=== PATIENT | female | born 1950 | race Caucasian/White ===

== ENCOUNTER 2018-07-30 01:38 | Emergency (ER) | payer MEDICARE, OTHER ==
[2018-07-30] MEDS ORDERED: DUONEB 0.5-3 MG/3 ml Neb IH ONE ×3 (01:43→03:57)
[2018-07-30] MEDS ORDERED: ROCEPHIN 1 Gm-D5w 50 ml Bag** 1 G/50 ML IVPB IV STA (01:44)
[2018-07-30] MEDS ORDERED: solu-MEDROL 125 MG IV ONE (01:44)
--- NOTE | 2018-07-30 01:44 | ERPHSYRPT ---
- History of Present Illness Time Seen by Provider: 07/30/18 01:39 Source: patient Exam Limitations: no limitations Physician History: 67 y/o white female with h/o recurrent bronchitis this time of year, presents with coughing for 2 days. 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 pt has no cp, no h/o emphysema/copd. sx are not better. pt is not on oxygen at home Timing/Duration: day(s) (2 to 3 days), worse Severity of Dyspnea-Max: moderate Severity of Dyspnea-Current: moderate Possible Cause: occasional episodes Modifying Factors: Improves With: coughing Associated Symptoms: anxiety, cough, wheezing, No chest pain/discomfort, No dizziness Allergies/Adverse Reactions: Sulfa (Sulfonamide Antibiotics) [Sulfa(Sulfonamide Antibiotics)] Allergy ( Intermediate, Verified 09/12/15 09:29) Hives Home Medications: Albuterol/Ipratropium 3ml Neb* [DUONEB 0.5-3 MG/3 ml Neb] 3 ml IH UD 09/12/15 [History] Azithromycin 250 mg [Zithromax 250 MG TABLET] 250 mg PO ZPACK 07/30/18 [ History] Gabapentin 300 mg PO HS 07/30/18 [History] Ibuprofen 200 mg [Motrin 200 mg] 200 mg PO Q6H PRN PRN 07/30/18 [History] Levothyroxine Sodium 25 mcg PO DAILY 07/30/18 [History] Lovastatin 40 mg PO DAILY 07/30/18 [History] Metformin HCl Xr 500 mg [Glucophage XR 500 MG] 500 mg PO DAILY 07/30/18 [ History] Potassium Chloride [Klor-Con M20] 20 meq PO DAILY 07/30/18 [History] Hx Tetanus, Diphtheria Vaccination/Date Given: No Hx Influenza Vaccination/Date Given: Yes Hx Pneumococcal Vaccination/Date Given: No - Review of Systems Constitutional: No Symptoms Eyes: No Symptoms Ears, Nose, & Throat: No Symptoms Respiratory: Cough, Dyspnea (mild), Wheezing, No Stridor Cardiac: No Symptoms, No Chest Pain, No Palpitations, No Syncope Abdominal/Gastrointestinal: No Symptoms, No Abdominal Pain, No Nausea, No Vomiting, No Diarrhea Genitourinary Symptoms: No Symptoms Musculoskeletal: No Symptoms Skin: No Symptoms Neurological: No Symptoms Psychological: No Symptoms Endocrine: No Symptoms Hematologic/Lymphatic: No Symptoms Immunological/Allergic: No Symptoms All Other Systems: Reviewed and Negative - Past Medical History Pertinent Past Medical History: Yes Neurological History: No Pertinent History ENT History: No Pertinent History Cardiac History: High Cholesterol, Hypertension Respiratory History: Asthma, Bronchitis Endocrine Medical History: No Pertinent History Musculoskeletal History: No Pertinent History GI Medical History: No Pertinent History History: No Pertinent History Psycho-Social History: No Pertinent History Female Reproductive Disorders: No Pertinent History Other Medical History: mitral valve prolapse, "pre-diabetes" - Past Surgical History Past Surgical History: Yes Neuro Surgical History: No Pertinent History Cardiac: No Pertinent History Respiratory: No Pertinent History Gastrointestinal: No Pertinent History Genitourinary: No Pertinent History Musculoskeletal: Joint Replacement, Orthopedic Surgery Female Surgical History: Hysterectomy Other Surgical History: hysterctomy 1999, ankle sx with plate 2008, left knee replacement January 2015 - Social History Smoking Status: Never smoker Exposure to second hand smoke: No Drug Use: none Patient Lives Alone: No - Nursing Vital Signs Nursing Vital Signs: Initial Vital Signs Temperature 101.5 F 07/30/18 01:39 Pulse Rate 95 H 07/30/18 01:39 Respiratory Rate 24 07/30/18 01:39 Blood Pressure 197/92 07/30/18 01:39 O2 Sat by Pulse Oximetry 93 L 07/30/18 01:39 Pain Scale Pain Intensity 4 - Physical Exam General Appearance: mild distress, alert, anxiety Eye Exam: PERRL/EOMI, eyes nml inspection Ears, Nose, Throat Exam: hearing grossly normal Neck Exam: normal inspection, non-tender, supple, full range of motion Respiratory Exam: airway intact, rhonchi (mild right side), wheezing (r>l), No chest tenderness, No respiratory distress, No accessory muscle use, No stridor Cardiovascular/Chest Exam: normal heart sounds, regular rate/rhythm, normal peripheral pulses Abdominal/Gastrointestinal Exam: soft, normal bowel sounds, No tenderness, No guarding, No rebound Rectal Exam: not done Extremity Exam: non-tender, normal range of motion, normal inspection Neurologic Exam: alert, oriented x 3, cooperative, sack repairer II-XII nml as tested Skin Exam: normal color, warm, dry Lymphatic Exam: No adenopathy SpO2 Interpretation: borderline oxygenation Oxygen Delivery: Room Air - Course Nursing assessment & vital signs reviewed: Yes EKG Interpreted by Me: RATE (91), Sinus Rhythm, NORMAL AXIS, NORMAL INTERVALS, NORMAL QRS, Other (no acute ischemia; no change from ekg dated 09/12/15) Ordered Tests: Active Orders 24 hr Category Date Time Status Appliance Sales Associate STAT Care 07/30/18 01:45 Active EKG-ER Only STAT Care 07/30/18 01:44 Active IV Insertion STAT Care 07/30/18 01:44 Active Oxygen-ED Only NASAL CANNULA 2 lpm Care 07/30/18 01:44 Active Pulse Oximetry (ED) STAT Care 07/30/18 01:44 Active CHEST 1 VIEW (PORTABLE) Stat Exams 07/30/18 01:44 Taken BLOOD CULTURE Stat Lab 07/30/18 02:05 Received CBC W DIFF Stat Lab 07/30/18 01:55 Completed Lactic Acid Stat Lab 07/30/18 02:20 Completed NT PRO BNP Stat Lab 07/30/18 01:55 Completed TROPONIN Q3H Lab 07/30/18 01:55 Completed TROPONIN Q3H Lab 07/30/18 05:00 Ordered TROPONIN Q3H Lab 07/30/18 08:00 Ordered TROPONIN Q3H Lab 07/30/18 11:00 Ordered TROPONIN Q3H Lab 07/30/18 14:00 Ordered TROPONIN Q3H Lab 07/30/18 17:00 Ordered TROPONIN Q3H Lab 07/30/18 20:00 Ordered TROPONIN Q3H Lab 07/30/18 23:00 Ordered Peak Expiratory Flow Rate ONCE RT 07/30/18 01:40 Active Respiratory Nebulizer STAT RT 07/30/18 01:45 Active Respiratory Therapy Assessment DAILY RT 07/30/18 01:41 Active Medication Summary Discontinued Medications Generic Name Dose Route Start Last Admin Trade Name Freq PRN Reason Stop Dose Admin Hydrocodone Bitart/Acetaminophen 10 ml 07/30/18 01:46 07/30/18 02:23 Hydrocodone-Acetamin 2.5-108/5 Ml Solution PO 07/30/18 01:47 10 ml STAT STA Administration Albuterol/Ipratropium Confirm 07/30/18 01:43 Duoneb 0.5-3 Mg/3 Ml Neb Administered 07/30/18 01:44 Dose 3 ml IH .STK-MED ONE Albuterol/Ipratropium 3 ml 07/30/18 01:44 07/30/18 01:54 Duoneb 0.5-3 Mg/3 Ml Neb IH 07/30/18 01:45 3 ml STAT ONE Administration Ceftriaxone Sodium/Dextrose 1 g in 50 mls @ 100 mls/hr 07/30/18 01:44 02:55 Rocephin 1 Gm-D5w 50 Ml Bag IV 07/30/18 02:13 Infused STAT STA Infusion Ceftriaxone Sodium/Dextrose Confirm 07/30/18 02:16 Rocephin 1 Gm-D5w 50 Ml Bag Administered 07/30/18 02:17 Dose 1 g in 50 mls @ ud IV .STK-MED ONE Methylprednisolone Sodium Succinate 125 mg 07/30/18 01:44 07/30/18 02:27 Solu-Medrol 125 Mg IV 07/30/18 01:45 125 mg STAT ONE Administration Methylprednisolone Sodium Succinate Confirm 07/30/18 02:16 Solu-Medrol 125 Mg Administered 07/30/18 02:17 Dose 125 mg .ROUTE .STK-MED ONE Lab/Rad Data: Laboratory Result Diagrams 07/30/18 01:55 Laboratory Results 07/30/18 07/30/18 07/30/18 Range/Units 02:20 01:55 01:55 WBC (4.0-10.5) K/mm3 RBC (4.1-5.4) M/mm3 Hgb (12.0-16.0) gm/dl Hct (35-47) % MCV (78-100) fl MCH (26-32) pg MCHC (32-36) g/dl RDW (11.5-14.0) % Plt Count (150-450) K/mm3 MPV (6-9.5) fl Gran % (36.0-66.0) % Eos # (Auto) (0-0.5) Absolute Lymphs (auto) (1.0-4.6) Absolute Monos (auto) (0.0-1.3) Lymphocytes % (24.0-44.0) % Monocytes % (0.0-12.0) % Eosinophils % (0.00-5.0) % Basophils % (0.0-0.4) % Absolute Granulocytes (1.4-6.9) Basophils # (0-0.4) Lactic Acid 1.3 (0.4-2.0) Troponin I < 0.012 (0.000-0.034) ng/mL NT-Pro-B Natriuret Pep 93.1 (0-900) pg/mL 07/30/18 Range/Units 01:55 WBC 5.1 (4.0-10.5) K/mm3 RBC 4.01 L (4.1-5.4) M/mm3 Hgb 11.9 L (12.0-16.0) gm/dl Hct 37.1 (35-47) % MCV 92.5 (78-100) fl MCH 29.6 (26-32) pg MCHC 32.1 (32-36) g/dl RDW 14.5 H (11.5-14.0) % Plt Count 256 (150-450) K/mm3 MPV 9.2 (6-9.5) fl Gran % 71.5 H (36.0-66.0) % Eos # (Auto) 0.06 (0-0.5) Absolute Lymphs (auto) 0.90 L (1.0-4.6) Absolute Monos (auto) 0.45 (0.0-1.3) Lymphocytes % 17.8 L (24.0-44.0) % Monocytes % 8.9 (0.0-12.0) % Eosinophils % 1.2 (0.00-5.0) % Basophils % 0.6 (0.0-0.4) % Absolute Granulocytes 3.61 (1.4-6.9) Basophils # 0.03 (0-0.4) Lactic Acid (0.4-2.0) Troponin I (0.000-0.034) ng/mL NT-Pro-B Natriuret Pep (0-900) pg/mL - Progress Progress: improved, re-examined Air Movement: good Progress Note: 07/30/18 03:51 pt states she is feeling better. hr improved. rr improved at this time. lactic acid nl, wbc nl, will give another neb tx. Blood Culture(s) Obtained: Yes Antibiotics given: Yes Counseled pt/family regarding: lab results, diagnosis, need for follow-up, rad results - Departure Time of Disposition: 03:53 Departure Disposition: Home Clinical Impression: Bronchitis Condition: Stable Critical Care Time: No Referrals: JACQUELINE DIAZ MD [Primary Care Provider] - Additional Instructions: complete your z pack as prescribed. follow up with dr. diaz for further management. return to ED if symptoms worsen. Prescriptions: Hydrocodone Bit/Acetaminophen [Hydrocodone-Acetaminophen Soln] 10 ml PO Q6H # 120 ml Prednisone 10 mg [Deltasone 10 mg] 10 mg PO TID #12 tablet
[2018-07-30] MEDS ORDERED: HYDROCODONE-ACETAMIN 2.5-108/5 ML SOLUTION PO STA (01:46)
[2018-07-30] MEDS: DUONEB 0.5-3 MG/3 ml Neb IH ONE ×2 (01:54→03:58)
[2018-07-30 02:10] LABS: BASOPHIL % 0.6 % (0.0-0.4); Basophil (Absolute #) 0.03 (0-0.4); Eosinophil % 1.2 % (0.00-5.0); Eosinophil (Absolute #) 0.06 (0-0.5); Granulocytes % 71.5 % (36.0-66.0); Hematocrit 37.1 % (35-47); Hemoglobin 11.9 gm/dl (12.0-16.0); Lymphocytes % 17.8 % (24.0-44.0); Mean Cell Volume 92.5 fl (78-100); Mean Corpuscular Hgb Concent. 32.1 g/dl (32-36); Mean Platelet Volume 9.2 fl (6-9.5); Monocyte (Absolute #) 0.45 (0.0-1.3); Monocytes % 8.9 % (0.0-12.0); Platelet Count 256 K/mm3 (150-450); Red Blood Count 4.01 M/mm3 (4.1-5.4); Red Cell Distribution Width 14.5 % (11.5-14.0); White Blood Count 5.1 K/mm3 (4.0-10.5)
[2018-07-30] MEDS ORDERED: solu-MEDROL 125 MG ONE (02:16)
[2018-07-30] MEDS ORDERED: ROCEPHIN 1 Gm-D5w 50 ml Bag** 1 G/50 ML IVPB IV ONE (02:16)
[2018-07-30 02:17] LABS: Mean Corpuscular Hemoglobin 29.6 pg (26-32)
[2018-07-30 05:36] VITALS: O2SAT 95
[2018-07-30 05:37] VITALS: BP 141/85; PULSE 90
--- NOTE | 2018-07-30 08:51 | XRAY ---
Indication: Cough. Short of breath. Comparison: June 30, 2017. Portable apical lordotic chest now demonstrates borderline cardiomegaly with central vascular congestion possible mild/early cardiac decompensation. No focal infiltrate, consolidation, or large effusion. Bony thorax intact. Impression: Borderline cardiomegaly with central vascular congestion possible mild/early cardiac decompensation. Superimposed pneumonia not completely excluded. Comment: Preliminary interpretation was made by [facility]. No discrepancy.
== END 2018-07-30 06:26 | disposition home or self-care (01) ==
LOC: ED 01:38
DX: J40 Bronchitis, not specified as acute or chronic (principal); I10 Essential (primary) hypertension; Z79.899 Other long term (current) drug therapy
CPT/HCPCS: 36000; 36415; 71045; 83605; 83880; 84484; 85025; 87040; 93005; 93041; 94150; 94640; 96365; 96374; 99284; J0696; J2930; A9270-GY

== ENCOUNTER 2018-08-01 13:43 | Inpatient (IN) | payer MEDICARE, OTHER ==
--- NOTE | 2018-08-01 14:12 | ERPHSYRPT ---
- History of Present Illness Time Seen by Provider: 08/01/18 14:03 Source: patient Exam Limitations: no limitations Physician History: The patient is a 67-year-old female with a friend complaining of a cough since . She did receive an influenza vaccination this year. On Monday, she saw [facility] care and was given a steroid shot and a Z-Sarath. She came to this ER on 07/30/18 because she wasn't any better. She was given breathing treatments, IV antibiotics, and steroids. She still has not been any better. She called her doctor today who did not return her call immediately. As she was checking into the ER, she received a phone call from him stating that he had called in a prescription for an antibiotic and steroids. She thinks she needs to be admitted because she lives alone and always has to be admitted when this happens once a year. She denies nausea or vomiting. She is short of breath. Her past medical history significant for asthma, DM, and hypertension. Her surgical history is significant for ankle surgery, knee replacement, and hysterectomy. Timing/Duration: day(s) (5), gradual onset, worse Cough Quality/Degree: moderate, dry cough Possible Cause: frequent episodes Modifying Factors: Improves With: albuterol nebulizer, coughing Associated Symptoms: cough, shortness of breath, wheezing Allergies/Adverse Reactions: Sulfa (Sulfonamide Antibiotics) [Sulfa(Sulfonamide Antibiotics)] Allergy ( Intermediate, Verified 09/12/15 09:29) Hives Home Medications: Albuterol/Ipratropium 3ml Neb* [DUONEB 0.5-3 MG/3 ml Neb] 3 ml IH UD 09/12/15 [History] Azithromycin 250 mg [Zithromax 250 MG TABLET] 250 mg PO ZPACK 07/30/18 [ History] Gabapentin 300 mg PO HS 07/30/18 [History] Ibuprofen 200 mg [Motrin 200 mg] 200 mg PO Q6H PRN PRN 07/30/18 [History] Levothyroxine Sodium 25 mcg PO DAILY 07/30/18 [History] Lovastatin 40 mg PO DAILY 07/30/18 [History] Metformin HCl Xr 500 mg [Glucophage XR 500 MG] 500 mg PO DAILY 07/30/18 [ History] Potassium Chloride [Klor-Con M20] 20 meq PO DAILY 07/30/18 [History] Hx Tetanus, Diphtheria Vaccination/Date Given: No Hx Influenza Vaccination/Date Given: Yes Hx Pneumococcal Vaccination/Date Given: No - Review of Systems Constitutional: No Fever, No Chills Eyes: No Symptoms Ears, Nose, & Throat: No Symptoms Respiratory: Cough, Dyspnea, Wheezing Cardiac: No Chest Pain, No Edema, No Syncope Abdominal/Gastrointestinal: No Abdominal Pain, No Nausea, No Vomiting, No Diarrhea Genitourinary Symptoms: No Dysuria Musculoskeletal: No Back Pain, No Neck Pain Skin: No Rash Neurological: No Dizziness, No Focal Weakness, No Sensory Changes Psychological: No Symptoms Endocrine: No Symptoms Hematologic/Lymphatic: No Symptoms Immunological/Allergic: No Symptoms All Other Systems: Reviewed and Negative - Past Medical History Pertinent Past Medical History: Yes Neurological History: No Pertinent History ENT History: No Pertinent History Cardiac History: High Cholesterol, Hypertension Respiratory History: Asthma, Bronchitis Endocrine Medical History: No Pertinent History Musculoskeletal History: No Pertinent History GI Medical History: No Pertinent History History: No Pertinent History Psycho-Social History: No Pertinent History Female Reproductive Disorders: No Pertinent History Other Medical History: mitral valve prolapse, "pre-diabetes" - Past Surgical History Past Surgical History: Yes Neuro Surgical History: No Pertinent History Cardiac: No Pertinent History Respiratory: No Pertinent History Gastrointestinal: No Pertinent History Genitourinary: No Pertinent History Musculoskeletal: Joint Replacement, Orthopedic Surgery Female Surgical History: Hysterectomy Other Surgical History: hysterctomy 1999, ankle sx with plate 2008, left knee replacement January 2015 - Social History Smoking Status: Never smoker Exposure to second hand smoke: No Drug Use: none Patient Lives Alone: No - Nursing Vital Signs Nursing Vital Signs: Initial Vital Signs Temperature 98.8 F 08/01/18 14:00 Pulse Rate 96 H 08/01/18 14:00 Respiratory Rate 20 08/01/18 14:00 Blood Pressure 174/105 08/01/18 14:00 O2 Sat by Pulse Oximetry 95 08/01/18 14:00 Pain Scale Pain Intensity 2 - Physical Exam General Appearance: mild distress, obese Eye Exam: PERRL/EOMI, eyes nml inspection Ears, Nose, Throat Exam: dry mucous membranes Neck Exam: normal inspection, non-tender, supple, full range of motion Respiratory Exam: normal breath sounds, diminished breath sounds, rhonchi, wheezing, No respiratory distress Cardiovascular Exam: regular rate/rhythm, normal heart sounds Gastrointestinal/Abdomen Exam: soft, No tenderness Pelvic Exam: not done Rectal Exam: not done Back Exam: normal inspection, No CVA tenderness, No vertebral tenderness Extremity Exam: normal inspection, normal range of motion Neurologic Exam: alert, oriented x 3, cooperative, normal mood/affect, sensation nml, No motor deficits Skin Exam: normal color, warm, dry, No rash Lymphatic Exam: No adenopathy SpO2 Interpretation: normal - Radiology Exams Chest X-ray Interpretation: Reviewed by me, Teleradiologist Report (per Dr Lawrence), Infiltrates (RLL infiltrate) Ordered Tests: Active Orders 24 hr Category Date Time Status IV Insertion STAT Care 08/01/18 14:19 Active Oxygen-ED Only NASAL CANNULA 2 lpm Care 08/01/18 14:19 Active CHEST 2 VIEWS (PA AND LAT) Stat Exams 08/01/18 14:20 Completed BLOOD CULTURE Stat Lab 08/01/18 14:40 Received CBC W DIFF Stat Lab 08/01/18 15:00 Completed CMP Stat Lab 08/01/18 15:00 Completed Lactic Acid Stat Lab 08/01/18 14:52 Results Manual Differential NC Stat Lab 08/01/18 15:00 Completed NT PRO BNP Stat Lab 08/01/18 15:00 Completed TROPONIN Q3H Lab 08/01/18 15:00 Completed TROPONIN Q3H Lab 08/01/18 17:30 Ordered TROPONIN Q3H Lab 08/01/18 20:30 Ordered TROPONIN Q3H Lab 08/01/18 23:30 Ordered TROPONIN Q3H Lab 08/02/18 02:30 Ordered Peak Expiratory Flow Rate ONCE RT 08/01/18 14:47 Active Respiratory Nebulizer STAT RT 08/01/18 14:21 Completed Respiratory Therapy Assessment DAILY RT 08/01/18 14:44 Active Medication Summary Discontinued Medications Generic Name Dose Route Start Last Admin Trade Name Freq PRN Reason Stop Dose Admin Albuterol/Ipratropium 3 ml 08/01/18 14:19 08/01/18 14:40 Duoneb 0.5-3 Mg/3 Ml Neb IH 08/01/18 14:20 3 ml STAT ONE Administration Albuterol/Ipratropium Confirm 08/01/18 14:36 Duoneb 0.5-3 Mg/3 Ml Neb Administered 08/01/18 14:37 Dose 3 ml IH .STK-MED ONE Sodium Chloride 1,000 mls @ 999 mls/hr 08/01/18 14:19 08/01/18 14:53 Sodium Chloride 0.9% 1000 Ml IV 08/01/18 15:19 999 mls/hr .Q1H1M STA Administration Sodium Chloride Confirm 08/01/18 14:46 Sodium Chloride 0.9% 1000 Ml Administered 08/01/18 14:47 Dose 1,000 mls @ ud .ROUTE .STK-MED ONE Methylprednisolone Sodium Succinate 125 mg 08/01/18 14:19 08/01/18 14:53 Solu-Medrol 125 Mg IV 08/01/18 14:20 125 mg STAT ONE Administration Methylprednisolone Sodium Succinate Confirm 08/01/18 14:45 Solu-Medrol 125 Mg Administered 08/01/18 14:46 Dose 125 mg .ROUTE .STK-MED ONE Lab/Rad Data: Laboratory Result Diagrams 08/01/18 15:00 08/01/18 15:00 Laboratory Results 08/01/18 08/01/18 08/01/18 Range/Units 15:00 15:00 15:00 WBC (4.0-10.5) K/mm3 RBC (4.1-5.4) M/mm3 Hgb (12.0-16.0) gm/dl Hct (35-47) % MCV (78-100) fl MCH (26-32) pg MCHC (32-36) g/dl RDW (11.5-14.0) % Plt Count (150-450) K/mm3 MPV (6-9.5) fl Segmented Neutrophils (36.0-66.0) % Band Neutrophils (0.0-2.0) % Lymphocytes (Manual) (24-44) % Monocytes (Manual) (0.0-12.0) % Eosinophils (Manual) (0.00-3.0) % Atypical Lymphocytes % Platelet Estimate (NORMAL) RBC Morphology Anisocytosis Sodium 140 (137-145) mmol/L Potassium 4.0 (3.5-5.1) mmol/L Chloride 103 (98-107) mmol/L Carbon Dioxide 29 (22-30) mmol/L Anion Gap 11.1 (5-15) MEQ/L BUN 15 (7-17) mg/dL Creatinine 0.48 L (0.52-1.04) mg/dL Estimated GFR > 60.0 ML/MIN Glucose 138 H (74-106) mg/dL Lactic Acid (0.4-2.0) Calcium 9.5 (8.4-10.2) mg/dL Total Bilirubin 0.40 (0.2-1.3) mg/dL AST 31 (14-36) U/L ALT 23 (0-35) U/L Alkaline Phosphatase 65 (38-126) U/L Troponin I < 0.012 (0.000-0.034) ng/mL NT-Pro-B Natriuret Pep 107 (0-900) pg/mL Serum Total Protein 7.6 (6.3-8.2) g/dL Albumin 4.3 (3.5-5.0) g/dL Influenza Type A Ag NEGATIVE (NEGATIVE) Influenza Type B Ag NEGATIVE (NEGATIVE) RSV (PCR) NEGATIVE (Negative) 08/01/18 08/01/18 Range/Units 15:00 14:52 WBC 5.5 (4.0-10.5) K/mm3 RBC 4.02 L (4.1-5.4) M/mm3 Hgb 11.8 L (12.0-16.0) gm/dl Hct 37.5 (35-47) % MCV 93.3 (78-100) fl MCH 29.3 (26-32) pg MCHC 31.5 L (32-36) g/dl RDW 14.4 H (11.5-14.0) % Plt Count 279 (150-450) K/mm3 MPV 9.1 (6-9.5) fl Segmented Neutrophils 63 (36.0-66.0) % Band Neutrophils 1 (0.0-2.0) % Lymphocytes (Manual) 25 (24-44) % Monocytes (Manual) 8 (0.0-12.0) % Eosinophils (Manual) 1 (0.00-3.0) % Atypical Lymphocytes 2 % Platelet Estimate NORMAL (NORMAL) RBC Morphology ABNORMAL Anisocytosis 1+ Sodium (137-145) mmol/L Potassium (3.5-5.1) mmol/L Chloride (98-107) mmol/L Carbon Dioxide (22-30) mmol/L Anion Gap (5-15) MEQ/L BUN (7-17) mg/dL Creatinine (0.52-1.04) mg/dL Estimated GFR ML/MIN Glucose (74-106) mg/dL Lactic Acid 2.1 H (0.4-2.0) Calcium (8.4-10.2) mg/dL Total Bilirubin (0.2-1.3) mg/dL AST (14-36) U/L ALT (0-35) U/L Alkaline Phosphatase (38-126) U/L Troponin I (0.000-0.034) ng/mL NT-Pro-B Natriuret Pep (0-900) pg/mL Serum Total Protein (6.3-8.2) g/dL Albumin (3.5-5.0) g/dL Influenza Type A Ag (NEGATIVE) Influenza Type B Ag (NEGATIVE) RSV (PCR) (Negative) - Progress Progress: improved Air Movement: fair Blood Culture(s) Obtained: Yes Antibiotics given: Yes Discussed with : Donavan Will see patient in: hospital (full admit) Counseled pt/family regarding: lab results, diagnosis, rad results - Departure Time of Disposition: 16:45 Departure Disposition: In-patient Admission (per Dr Diaz) Clinical Impression: Pneumonia Condition: Stable Critical Care Time: No Referrals: JACQUELINE DIAZ MD [Primary Care Provider] -
[2018-08-01] MEDS ORDERED: DUONEB 0.5-3 MG/3 ml Neb IH ONE ×2 (14:19→14:36)
[2018-08-01] MEDS ORDERED: Sodium Chloride 0.9% 1000 ML 1,000 ML IV STA (14:19)
[2018-08-01] MEDS ORDERED: solu-MEDROL 125 MG IV ONE (14:19)
--- NOTE | 2018-08-01 14:36 | XRAY ---
Indication: Cough and short of breath. Comparison: July 30, 2018. PA/lateral chest now demonstrates right lower lobe infiltrate without consolidation or large effusion. Remaining heart and lungs unremarkable.
[2018-08-01] MEDS ORDERED: solu-MEDROL 125 MG ONE (14:45)
[2018-08-01] MEDS ORDERED: Sodium Chloride 0.9% 1000 ML 1,000 ML ONE (14:46)
[2018-08-01 14:56] LABS: Lactic Acid 2.1 (0.4-2.0)
[2018-08-01 15:19] LABS: Hematocrit 37.5 % (35-47); Hemoglobin 11.8 gm/dl (12.0-16.0); Mean Cell Volume 93.3 fl (78-100); Mean Corpuscular Hgb Concent. 31.5 g/dl (32-36); Mean Platelet Volume 9.1 fl (6-9.5); Platelet Count 279 K/mm3 (150-450); Red Blood Count 4.02 M/mm3 (4.1-5.4); Red Cell Distribution Width 14.4 % (11.5-14.0); White Blood Count 5.5 K/mm3 (4.0-10.5)
[2018-08-01 15:40] LABS: Mean Corpuscular Hemoglobin 29.3 pg (26-32)
[2018-08-01 15:46] LABS: ALBUMIN 4.3 g/dL (3.5-5.0); ALKALINE PHOSPHATASE 65 U/L (38-126); ANION GAP 11.1 MEQ/L (5-15); BLOOD UREA NITROGEN 15 mg/dL (7-17); CHLORIDE 103 mmol/L (98-107); Calcium 9.5 mg/dL (8.4-10.2); Carbon Dioxide 29 mmol/L (22-30); Creatinine 1 0.48 mg/dL (0.52-1.04); Glucose 138 mg/dL (74-106); NT PRO BNP 107 pg/mL (0-900); SGOT/AST 31 U/L (14-36); SGPT/ALT 23 U/L (0-35); SODIUM 140 mmol/L (137-145); Total Protein 7.6 g/dL (6.3-8.2)
[2018-08-01 15:55] LABS: INFLUENZA A NEGATIVE (NEGATIVE); INFLUENZA B NEGATIVE (NEGATIVE); RESPIRATORY SYNCTIAL VIRUS NEGATIVE (Negative)
[2018-08-01 16:09] LABS: ANISOCYTOSIS 1+; ATYPICAL LYMPHS 2 %; BAND 1 % (0.0-2.0); Eosinophil 1 % (0.00-3.0); Lymphocytes 25 % (24-44); Monocyte 8 % (0.0-12.0); Neutrophils 63 % (36.0-66.0); Platelet Estimate NORMAL (NORMAL); Total Cells Counted 100
[2018-08-01] MEDS ORDERED: ROCEPHIN 1 Gm-D5w 50 ml Bag** 1 G/50 ML IVPB IV STA (16:44)
[2018-08-01] MEDS ORDERED: ROCEPHIN 1 Gm-D5w 50 ml Bag** 1 G/50 ML IVPB IV ONE (16:55)
[2018-08-01] MEDS ORDERED: PROVENTIL 2.5 MG/3 ML NEB IH ONE (17:24)
[2018-08-01] MEDS ORDERED: TYLENOL 325 MG PO PRN (17:33)
[2018-08-01] MEDS ORDERED: MORPHINE SULFATE 2 MG INJ IV PRN (17:33)
[2018-08-01] MEDS ORDERED: Zofran 4 MG/2 ML VIAL IV PRN (17:33)
[2018-08-01] MEDS ORDERED: PROVENTIL 2.5 MG/3 ML NEB IH PRN (17:37)
[2018-08-01] MEDS: Sodium Chloride 0.9% 1000 ML 1,000 ML IV SCH (18:20)
[2018-08-01] MEDS ORDERED: PROVENTIL 2.5 MG/3 ML NEB IH SCH (19:00)
[2018-08-01] MEDS ORDERED: DUONEB 0.5-3 MG/3 ml Neb IH SCH (19:00)
[2018-08-01] MEDS: DUONEB 0.5-3 MG/3 ml Neb IH SCH ×2 (19:31→23:03)
[2018-08-01] MEDS ORDERED: HYDROCODONE-ACETAMIN 2.5-108/5 ML SOLUTION PO PRN (19:42)
[2018-08-01] MEDS ORDERED: MOTRIN 200 MG PO PRN (19:50)
[2018-08-01] MEDS ORDERED: Zithromax 500 MG/ 250 ML NaCl Premix 500 MG/250 ML IVPB IV ONE (20:20)
[2018-08-01] MEDS: solu-MEDROL 125 MG IV SCH (20:42)
[2018-08-01 20:45] LABS: Lactic Acid 2.2 (0.4-2.0)
[2018-08-01] MEDS: NovoLOG Insulin SQ PRN (22:22)
[2018-08-01] MEDS: NEURONTIN 300 MG PO SCH (22:22)
[2018-08-01 23:55] LABS: Lactic Acid 2.7 (0.4-2.0)
[2018-08-02] MEDS: solu-MEDROL 125 MG IV SCH ×2 (03:04→22:21)
[2018-08-02] MEDS: DUONEB 0.5-3 MG/3 ml Neb IH SCH ×6 (03:14→23:30)
[2018-08-02] MEDS ORDERED: TYLENOL 325 MG ONE (05:38)
[2018-08-02] MEDS ORDERED: Sodium Chloride 0.9% 1000 ML 1,000 ML ONE (05:38)
[2018-08-02] MEDS: Sodium Chloride 0.9% 1000 ML 1,000 ML IV SCH (05:43)
[2018-08-02 06:00] LABS: Hematocrit 33.7 % (35-47); Hemoglobin 10.7 gm/dl (12.0-16.0); Mean Cell Volume 93.6 fl (78-100); Mean Corpuscular Hemoglobin 29.7 pg (26-32); Mean Corpuscular Hgb Concent. 31.8 g/dl (32-36); Mean Platelet Volume 8.9 fl (6-9.5); Platelet Count 256 K/mm3 (150-450); Red Cell Distribution Width 14.4 % (11.5-14.0); White Blood Count 4.7 K/mm3 (4.0-10.5)
[2018-08-02 06:15] LABS: ANION GAP 13.1 MEQ/L (5-15); BLOOD UREA NITROGEN 10 mg/dL (7-17); CHLORIDE 105 mmol/L (98-107); Calcium 8.6 mg/dL (8.4-10.2); Carbon Dioxide 26 mmol/L (22-30); Creatinine 1 0.41 mg/dL (0.52-1.04); Glucose 208 mg/dL (74-106); Potassium 3.6 mmol/L (3.5-5.1); SODIUM 140 mmol/L (137-145)
[2018-08-02] MEDS ORDERED: NORCO 5/325 MG PO PRN (06:46)
[2018-08-02 07:25] LABS: ANISOCYTOSIS 1+; ATYPICAL LYMPHS 1 %; BAND 1 % (0.0-2.0); Lymphocytes 11 % (24-44); Monocyte 4 % (0.0-12.0); Neutrophils 83 % (36.0-66.0); Platelet Estimate NORMAL (NORMAL); Total Cells Counted 100; Toxic Granulation 1+
[2018-08-02] MEDS: NovoLOG Insulin SQ PRN ×3 (07:37→22:21)
[2018-08-02] MEDS: Glucophage XR 500 MG PO SCH (09:08)
[2018-08-02] MEDS: ZOCOR 20MG PO SCH (09:08)
[2018-08-02] MEDS: Klor Con 10 MEQ PO SCH (09:09)
[2018-08-02] MEDS ORDERED: Tussionex Pennkinetic Susp PO PRN (09:19)
[2018-08-02] MEDS ORDERED: NON-FORMULARY ITEM (Potassium Chloride [Klor-Con M20] 20 MEQ) PO SCH (10:00)
[2018-08-02] MEDS ORDERED: Zithromax 500 MG/ 250 ML NaCl Premix 500 MG/250 ML IVPB IV SCH ×2 (10:00→22:00)
[2018-08-02] MEDS: ROCEPHIN 1 Gm-D5w 50 ml Bag** 1 G/50 ML IVPB IV SCH (10:00)
[2018-08-02] MEDS ORDERED: solu-MEDROL 125 MG IV SCH (12:00)
[2018-08-02] MEDS: Sodium Chloride 0.9% 10 ML FLUSH Syringe IV SCH ×2 (22:18→22:20)
[2018-08-02] MEDS: NEURONTIN 300 MG PO SCH (22:20)
[2018-08-03] MEDS: DUONEB 0.5-3 MG/3 ml Neb IH SCH ×3 (03:53→10:27)
[2018-08-03] MEDS: Sodium Chloride 0.9% 10 ML FLUSH Syringe IV SCH (06:47)
[2018-08-03] MEDS: ROCEPHIN 1 Gm-D5w 50 ml Bag** 1 G/50 ML IVPB IV SCH (09:15)
[2018-08-03] MEDS: Klor Con 10 MEQ PO SCH (09:16)
[2018-08-03] MEDS: Glucophage XR 500 MG PO SCH (09:16)
[2018-08-03] MEDS: ZOCOR 20MG PO SCH (09:16)
[2018-08-03] MEDS: solu-MEDROL 125 MG IV SCH (09:16)
[2018-08-03] MEDS: NovoLOG Insulin SQ PRN (09:17)
[2018-08-03 09:37] LABS: Hematocrit 35.2 % (35-47); Mean Cell Volume 94.1 fl (78-100); Mean Corpuscular Hemoglobin 29.4 pg (26-32); Mean Corpuscular Hgb Concent. 31.3 g/dl (32-36); Mean Platelet Volume 8.8 fl (6-9.5); Platelet Count 276 K/mm3 (150-450); Red Blood Count 3.74 M/mm3 (4.1-5.4); Red Cell Distribution Width 14.7 % (11.5-14.0); White Blood Count 9.9 K/mm3 (4.0-10.5)
[2018-08-03 13:06] VITALS: BP 170/84; PULSE 80; O2SAT 95
--- NOTE | 2018-08-03 13:12 | PCM.SSS ---
History of Present Illness - Chief Complaint Chief Complaint: shortness of breath for 3-4 days History of Present Illness: is a 67 year old female came to [facility] with c/o shortness of breath, cough , fever for 3-4 days - Review of Systems Constitutional: No Fever, No Chills Eyes: No Symptoms Ears, Nose, & Throat: No Symptoms Respiratory: Cough, Short Of Breath, Wheezing Cardiac: No Chest Pain, No Edema, No Syncope Abdominal/Gastrointestinal: No Abdominal Pain, No Nausea, No Vomiting, No Diarrhea Genitourinary Symptoms: No Dysuria Musculoskeletal: No Back Pain, No Neck Pain Skin: No Rash Neurological: No Dizziness, No Focal Weakness, No Sensory Changes Psychological: No Symptoms Endocrine: No Symptoms Hematologic/Lymphatic: No Symptoms Immunological/Allergic: No Symptoms Medications & Allergies Home Medications: Home Medication List Albuterol/Ipratropium 3ml Neb* [DUONEB 0.5-3 MG/3 ml Neb] 3 ml IH UD 09/12/15 [History Confirmed 08/01/18] Gabapentin 300 mg PO HS 07/30/18 [History Confirmed 08/01/18] Hydrocodone Bit/Acetaminophen [Hydrocodone-Acetaminophen Soln] 10 ml PO Q6H # 120 ml 07/30/18 [Rx Confirmed 08/01/18] Ibuprofen 200 mg [Motrin 200 mg] 200 mg PO Q6H PRN PRN 07/30/18 [History Confirmed 08/01/18] Lovastatin 40 mg PO DAILY 07/30/18 [History Confirmed 08/01/18] Metformin HCl Xr 500 mg [Glucophage XR 500 MG] 500 mg PO DAILY 07/30/18 [ History Confirmed 08/01/18] Potassium Chloride [Klor-Con M20] 20 meq PO DAILY 07/30/18 [History Confirmed ] Allergies/Adverse Reactions: Allergies Allergy/AdvReac Type Severity Reaction Status Date / Time Sulfa (Sulfonamide Allergy Intermediate Hives Verified 09/12/15 09:29 Antibiotics) [Sulfa(Sulfonamide Antibiotics)] - Past Medical History Past Medical History: Yes Neurological History: No Pertinent History ENT History: Cataracts Cardiac History: High Cholesterol, Hypertension Respiratory History: Asthma, Bronchitis Endocrine Medical History: Diabetes Type II Musculoskelatal History: No Pertinent History GI Medical History: No Pertinent History History: No Pertinent History Pyscho-Social History: No Pertinent History Reproductive Disorders: No Pertinent History Comment: mitral valve prolapse - Female History Are you now?: No - Past Surgical History Past Surgical History: Yes (Knee replacement) Neuro Surgical History: No Pertinent History Cardiac History: No Pertinent History Respiratory Surgery: No Pertinent History GI Surgical History: No Pertinent History Genitourinary Surgical Hx: No Pertinent History Musculskeletal Surgical Hx: No Pertinent History Female Surgical History: No Pertinent History Other Surgical History: hysterctomy 1999, ankle sx with plate 2008, left knee replacement January 2015 - Social History Smoking Status: Never smoker Exposure to second hand smoke: No Alcohol: None Drug Use: none - Physical Exam Vital Signs: Vital Signs - 24 hr Temp Pulse Resp BP Pulse Ox 08/03/18 12:00 98 F 80 23 170/84 95 08/03/18 10:34 84 18 93 L 08/03/18 08:00 98.1 F 89 18 142/79 100 08/03/18 06:42 89 16 98 08/03/18 04:26 98.0 F 84 20 152/86 99 08/03/18 03:55 68 20 96 08/02/18 23:58 97.7 F 77 20 140/80 97 08/02/18 23:32 76 20 97 08/02/18 19:36 97.6 F 87 20 137/69 98 08/02/18 19:32 86 20 94 L 08/02/18 16:00 20 08/02/18 15:52 97.8 F 94 H 20 118/61 97 08/02/18 14:53 88 18 95 Oxygen-Last 24 hours O2 Percentage 2 Liters = 28% O2 Percentage 2 Liters = 28% O2 Percentage 2 Liters = 28% O2 Percentage 4 Liters = 36% General Appearance: no apparent distress, alert Neurologic Exam: alert, oriented x 3, cooperative, normal mood/affect, nml cerebellar function, nml station & gait, sensation nml, No motor deficits Eye Exam: PERRL/EOMI, eyes nml inspection Ears, Nose, Throat Exam: normal ENT inspection, TMs normal, pharynx normal, moist mucous membranes Neck Exam: normal inspection, non-tender, supple, full range of motion Respiratory Exam: normal breath sounds, lungs clear, No respiratory distress Cardiovascular Exam: regular rate/rhythm, normal heart sounds, normal peripheral pulses Gastrointestinal/Abdomen Exam: soft, normal bowel sounds, No tenderness, No mass Back Exam: normal inspection, normal range of motion, No CVA tenderness, No vertebral tenderness Extremity Exam: normal inspection, normal range of motion, pelvis stable Skin Exam: normal color, warm, dry, No rash Lymphatic Exam: No adenopathy Results - Labs Lab/Micro Results: Accuchecks Date 08/03/18 Date 08/03/18 Date 08/02/18 Time 11:30 Time 07:30 Time 16:30 Accucheck Value: 190 Accucheck Value: 183 Accucheck Value: 219 Accucheck Value: 174 Lab Results-Last 24 Hours 08/02/18 08/03/18 Range/Units Unknown 09:30 WBC 9.9 (4.0-10.5) K/mm3 RBC 3.74 L (4.1-5.4) M/mm3 Hgb 11.0 L (12.0-16.0) gm/dl Hct 35.2 (35-47) % MCV 94.1 (78-100) fl MCH 29.4 (26-32) pg MCHC 31.3 L (32-36) g/dl RDW 14.7 H (11.5-14.0) % Plt Count 276 (150-450) K/mm3 MPV 8.8 (6-9.5) fl Hemoglobin A1c 6.27 H (4.5-6.0) % Microbiology 08/01/18 15:00 Blood Culture - Preliminary Blood NO GROWTH TO DATE 08/01/18 14:40 Blood Culture - Preliminary Blood NO GROWTH TO DATE Accuchecks Date 08/03/18 Date 08/03/18 Date 08/02/18 Time 11:30 Time 07:30 Time 16:30 Accucheck Value: 190 Accucheck Value: 183 Accucheck Value: 219 Accucheck Value: 174 - Radiology Impressions Radiology Exams & Impressions: Radiology Procedures Category Date Time Status CHEST 2 VIEWS (PA AND LAT) Stat Exams 08/01/18 14:20 Completed Assessment/Plan (1) Pneumonia Current Visit: Yes Status: Acute Code(s): J18.9 - PNEUMONIA, UNSPECIFIED ORGANISM (2) Bronchitis Current Visit: No Status: Acute Code(s): J40 - BRONCHITIS, NOT SPECIFIED ACUTE OR CHRONIC Hospital Summary - Hospital Course Hospital Course: Last Vital Signs Temp 98 F 08/03/18 12:00 Pulse 80 08/03/18 12:00 Resp 23 08/03/18 12:00 BP 170/84 08/03/18 12:00 Pulse Ox 95 08/03/18 12:00 Allergies Sulfa (Sulfonamide Antibiotics) [Sulfa(Sulfonamide Antibiotics)] Allergy ( Intermediate, Verified 09/12/15 09:29) Hives Active Medications Acetaminophen (Tylenol 325 Mg) 650 mg PO Q4H PRN PRN PRN Reason: PAIN AND/OR FEVER Stop: 08/31/18 17:32 Last Admin: 08/02/18 20:14 Dose: 650 mg Hydrocodone Bitart/Acetaminophen ([place] 5/325 Mg) 1 tab PO Q6H PRN PRN PRN Reason: pain Stop: 08/07/18 06:45 Albuterol Sulfate (Proventil 2.5 Mg/3 Ml Neb) 2.5 mg IH Q4H PRN PRN PRN Reason: SHORTNESS OF BREATH/WHEEZING Stop: 08/31/18 17:36 Last Admin: 08/01/18 17:20 Dose: 2.5 mg Albuterol/Ipratropium (Duoneb 0.5-3 Mg/3 Ml Neb) 3 ml IH Q4HRT DIANA Stop: 08/31/18 18:59 Last Admin: 08/03/18 10:27 Dose: 3 ml Chlorphenir/Hydrocodone Polistirex (Tussionex Pennkinetic Susp) 5 ml PO Q12H PRN PRN PRN Reason: COUGH Stop: 08/07/18 09:18 Last Admin: 08/02/18 10:00 Dose: 5 ml Gabapentin (Neurontin 300 Mg) 300 mg PO HS DIANA Stop: 08/31/18 21:59 Last Admin: 08/02/18 22:20 Dose: 300 mg Ceftriaxone Sodium/Dextrose (Rocephin 1 Gm-D5w 50 Ml Bag) 1 g in 50 mls @ 100 mls/hr IV Q24H10 DIANA Stop: 09/01/18 09:59 Last Admin: 08/03/18 09:15 Dose: 100 mls/hr Azithromycin (Zithromax 500 Mg/ 250 Ml Nacl Premix) 500 mg in 250 mls @ 250 mls /hr IV Q24H22 [facility] Stop: 09/01/18 21:59 Last Admin: 08/02/18 22:21 Dose: 250 mls/hr Ibuprofen (Motrin 200 Mg) 200 mg PO Q6HPRN PRN PRN Reason: PAIN Stop: 08/31/18 19:49 Last Admin: 08/02/18 05:43 Dose: 200 mg Insulin Aspart (Novolog Insulin) 0 unit SQ UD PRN PRN Reason: HYPERGLYCEMIA Stop: 08/31/18 22:15 Last Admin: 08/03/18 09:17 Dose: 3 unit Metformin HCl (Glucophage Xr 500 Mg) 500 mg PO DAILY [facility] Stop: 09/01/18 09:59 Last Admin: 08/03/18 09:16 Dose: 500 mg Methylprednisolone Sodium Succinate (Solu-Medrol 125 Mg) 80 mg IV Q12HT [facility] Stop: 09/01/18 21:59 Last Admin: 08/03/18 09:16 Dose: 80 mg Morphine Sulfate (Morphine Sulfate 2 Mg Inj) 2 mg IV Q4H PRN PRN PRN Reason: PAIN Stop: 08/06/18 17:32 Ondansetron HCl (Zofran 4 Mg/2 Ml Vial) 4 mg IV Q6H PRN PRN PRN Reason: NAUSEA/VOMITING Stop: 08/31/18 17:32 Potassium Chloride (Klor Con 10 Meq) 20 meq PO DAILY [facility] Stop: 09/01/18 09:59 Last Admin: 08/03/18 09:16 Dose: 20 meq Simvastatin (Zocor 20mg) 40 mg PO DAILY [facility] Stop: 09/01/18 09:59 Last Admin: 08/03/18 09:16 Dose: 40 mg Sodium Chloride (Sodium Chloride 0.9% 10 Ml Flush Syringe) 10 ml IV Q8HT [facility] Stop: 09/01/18 13:59 Last Admin: 08/03/18 06:47 Dose: 10 ml Intake & Output 08/03/18 08/04/18 11:59 11:59 Intake Total 3089 Output Total 3250 Balance -161 Weight 104.3 kg Orders 08/02/18 14:00 NaCl 0.9% 10 ML FLUSH [Sodium Chloride 0.9% 10 ML FLUSH Syringe] 10 ml IV Q8HT 08/02/18 22:00 Methylprednis Sod Succ 125 mg* [solu-MEDROL 125 MG] 80 mg IV Q12HT Lab Tests 08/02/18 08/03/18 Unknown 09:30 WBC 9.9 RBC 3.74 L Hgb 11.0 L Hct 35.2 MCV 94.1 MCH 29.4 MCHC 31.3 L RDW 14.7 H Plt Count 276 MPV 8.8 Hemoglobin A1c 6.27 H Microbiology 08/01/18 15:00 Blood Blood Culture - Preliminary NO GROWTH TO DATE 08/01/18 14:40 Blood Blood Culture - Preliminary NO GROWTH TO DATE - Vitals & Intake/Output Vital Signs: Vital Signs Temperature 98 F 08/03/18 12:00 Pulse Rate 80 08/03/18 12:00 Respiratory Rate 23 08/03/18 12:00 Blood Pressure 170/84 08/03/18 12:00 O2 Sat by Pulse Oximetry 95 08/03/18 12:00 Oxygen-Last Documented O2 Percentage 2 Liters = 28% Intake & Output: Intake & Output 08/01/18 08/02/18 08/03/18 08/04/18 11:59 11:59 11:59 11:59 Intake Total 4292 3089 Output Total 2250 3250 Balance 2042 -161 Weight 104.3 kg 104.3 kg - Lab Result Diagrams: 08/03/18 09:30 08/02/18 05:28 Lab Results-Last 24 Hrs: Accuchecks Date 08/03/18 Date 08/03/18 Date 08/02/18 Time 11:30 Time 07:30 Time 16:30 Accucheck Value: 190 Accucheck Value: 183 Accucheck Value: 219 Accucheck Value: 174 Lab Results-Last 24 Hours 08/02/18 08/03/18 Range/Units Unknown 09:30 WBC 9.9 (4.0-10.5) K/mm3 RBC 3.74 L (4.1-5.4) M/mm3 Hgb 11.0 L (12.0-16.0) gm/dl Hct 35.2 (35-47) % MCV 94.1 (78-100) fl MCH 29.4 (26-32) pg MCHC 31.3 L (32-36) g/dl RDW 14.7 H (11.5-14.0) % Plt Count 276 (150-450) K/mm3 MPV 8.8 (6-9.5) fl Hemoglobin A1c 6.27 H (4.5-6.0) % Micro Results-Entire Visit: Microbiology 08/01/18 15:00 Blood Culture - Preliminary Blood NO GROWTH TO DATE 08/01/18 14:40 Blood Culture - Preliminary Blood NO GROWTH TO DATE Accuchecks Date 08/03/18 Date 08/03/18 Date 08/02/18 Time 11:30 Time 07:30 Time 16:30 Accucheck Value: 190 Accucheck Value: 183 Accucheck Value: 219 Accucheck Value: 174 - Radiology Exams Ordered Rad Exams-Entire Visit: Radiology Procedures Category Date Time Status CHEST 2 VIEWS (PA AND LAT) Stat Exams 08/01/18 14:20 Completed - Procedures and Test Procedures and Tests throughout Hospitalization: Therapy Orders & Screens 08/01/18 14:21 Respiratory Nebulizer STAT Comment: Diagnosis: Shortness of Breath 08/01/18 14:44 Respiratory Therapy Assessment DAILY Comment: Diagnosis: Shortness of Breath 08/01/18 14:47 Peak Expiratory Flow Rate DAILY Comment: Reason For Exam: Diagnosis: Shortness of Breath 08/01/18 17:33 Oxygen NASAL CANNULA 2 lpm Comment: Diagnosis: Shortness of Breath 08/01/18 18:12 RT Screen per Nursing Assess ONCE Comment: Protocol Order Physician Instructions: Greater than 3 points order RT Admission Screen Reason For Exam: Triggered on Admission Diagnosis: PN Diagnosis: PN Pneumonia: Yes Home O2: No Asthma: No CHF: No Home CPAP/BIPAP: Yes Home Nebs/MDI: Yes Total Points: 13 08/01/18 19:45 FLUTTER [Flutter Therapy] UD Comment: Diagnosis: PN - Discharge Discharge Date: 08/03/18 Disposition: Home, Self-Care Condition: Stable Prescriptions: No Action Albuterol/Ipratropium 3ml Neb* [DUONEB 0.5-3 MG/3 ml Neb] 3 ml IH UD Gabapentin 300 mg PO HS Potassium Chloride [Klor-Con M20] 20 meq PO DAILY Metformin HCl Xr 500 mg [Glucophage XR 500 MG] 500 mg PO DAILY Lovastatin 40 mg PO DAILY Ibuprofen 200 mg [Motrin 200 mg] 200 mg PO Q6H PRN PRN PRN Reason: pain/fever Hydrocodone Bit/Acetaminophen [Hydrocodone-Acetaminophen Soln] 10 ml PO Q6H # 120 ml Follow up with: JACQUELINE DIAZ MD [Primary Care Provider] - 08/10/18 9:45 am (at [place])
== END 2018-08-03 14:30 | disposition home or self-care (01) | DRG 195 ==
LOC: ED 13:43 → MED SURG 17:18
PROVIDERS: ADMIT General Practice; ATTEND General Practice
DX: J18.9 Pneumonia, unspecified organism (principal); J40 Bronchitis, not specified as acute or chronic; I10 Essential (primary) hypertension; E78.00 Pure hypercholesterolemia, unspecified; I34.1 Nonrheumatic mitral (valve) prolapse; E11.9 Type 2 diabetes mellitus without complications; Z79.4 Long term (current) use of insulin; Z79.899 Other long term (current) drug therapy; J45.909 Unspecified asthma, uncomplicated
CPT/HCPCS: 36000; 36415; 71046; 80048; 80053; 82962; 83036; 83605; 83880; 84484; 85025; 85027; 87040; 87631; 94150; 94640; 94667; 94668; 94762; 96365; 96374; 99285; J0456; J0696; J2930; J7609; A9270-GY

== ENCOUNTER 2022-10-20 06:42 | Day surgery (SDC) | payer MEDICARE, OTHER ==
--- NOTE | 2022-10-19 11:11 | HP ---
DATE OF SURGERY: 10/20/2022 HISTORY OF PRESENT ILLNESS: The patient is a 71-year-old present with history of gallbladder about five years ago. She has been having some heartburn and reflux. She has epigastric pain substernal pain. The patient has been on some pantoprazole and famotidine. Somewhat improved in her symptoms. She had issues at one point with food getting stuck which resolved. She has never had an EGD. It looks like the patient had Cologuard a few years ago. It looks like she had colonoscopy 10 to 15 years ago that was incomplete. Some trouble getting clean. PAST MEDICAL HISTORY: Hypertension, asthma, gastroesophageal reflux disease, diabetes, arthritis, hyperlipidemia, hypothyroid, mitral valve prolapse. PAST SURGICAL HISTORY: Cataracts. Knee replacement. Hysterectomy. Gallbladder. ALLERGIES: SULFA. MEDICATIONS: Pantoprazole, Pepcid, vitamin D, metformin, gabapentin, lovastatin, lisinopril, amlodipine, potassium, Synthroid. FAMILY HISTORY: Renal cancer. SOCIAL HISTORY: None. REVIEW OF SYSTEMS: CONSTITUTIONAL: Denies fever or chills. CHEST: Denies shortness of breath. CVS: Denies chest pain. ABDOMEN: Reports epigastric pain. PHYSICAL EXAMINATION: GENERAL: No acute distress. CHEST: Nonlabored. No shortness of breath. CVS: Regular rate and rhythm. ABDOMEN: Soft. IMPRESSION: Epigastric pain, dysphagia and screening. PLAN: EGD and colonoscopy with Dr. Sherman Sifuentes. As dictated by Chioma Johnson NP.
[2022-10-20] MEDS ORDERED: GlucaGen 1 MG IM ONE (06:43)
[2022-10-20] MEDS ORDERED: Lactated Ringers 1,000 ML IV ONE ×2 (07:29→09:07)
[2022-10-20] MEDS ORDERED: Lactated Ringers 1,000 ML IV SCH (07:30)
[2022-10-20] MEDS ORDERED: DIPRIVAN 200 MG/20 ML IV ONE ×2 (08:48→09:03)
[2022-10-20] MEDS ORDERED: Versed 2 MG/2 ML Injection ONE (08:55)
[2022-10-20 10:27] VITALS: O2SAT 97
[2022-10-20 10:29] VITALS: BP 135/84; PULSE 72
--- NOTE | 2022-10-20 13:36 | OP ---
SURGERY DATE: 10/20/2022 SURGERY TIME: 0850 PREOPERATIVE DIAGNOSIS: 1. PATIENT HAS EPIGASTRIC PAIN/DYSPHAGIA. 2. PATIENT HAS NOT HAD A COMPLETE COLONOSCOPY OVER 10-15 YEARS. A MATTER OF FACT, SHE IS NOT SURE IF SHE HAD A COMPLETE ONE THEN. POSTOPERATIVE DIAGNOSIS: 1. 1. PATIENT HAS EPIGASTRIC PAIN/DYSPHAGIA. 2. PATIENT HAS NOT HAD A COMPLETE COLONOSCOPY OVER 10-15 YEARS. A MATTER OF FACT, SHE IS NOT SURE IF SHE HAD A COMPLETE ONE THEN. PROCEDURE: 1. EGD. 2. Colonoscopy complete to cecum. SURGEON: Sherman Sifuentes M.D. ANESTHESIA: MAC. COMPLICATIONS: None. CONDITION: Stable. FINDINGS: She had some spasm. She had a slightly redundant colon. The spasm was fairly persistent and Glucagon was given twice. We were able to reach the end of the cecum with the ileocecal valve and appendiceal orifice. She did have moderate internal hemorrhoids. OPERATIVE PROCEDURE: Anal digital examination satisfactory. The scope introduced. The scope advanced to the cecum. Base of the cecum, ileocecal valve, and appendiceal orifice were photographed. Ascending, hepatic, transverse, splenic, descending, sigmoid, rectum, anus. Other than the spasm, a little bit of redundancy. There have been no mucosal lesions. There were moderate internal hemorrhoids that were fairly substantial. On the upper scope, pharyngoesophageal junction a little spastic. Esophagus normal down to esophagogastric junction. There was no visible hiatal hernia at this moment. There was grade 3/4 gastroesophageal reflux disease. Fundus, body, antrum satisfactory. Pylorus satisfactory. Duodenal bulb satisfactory. Second portion satisfactory. Scope looped upon itself. No hiatal hernia from below. Scope withdrawn. IMPRESSION: 1. GRADE 3/4 GASTROESOPHAGEAL REFLUX DISEASE, OTHERWISE SATISFACTORY.
== END 2022-10-20 10:23 | disposition home or self-care (01) ==
LOC: SDC 06:42
PROVIDERS: ATTEND Surgery
DX: Z12.11 Encounter for screening for malignant neoplasm of colon (principal); R13.10 Dysphagia, unspecified; K21.9 Gastro-esophageal reflux disease without esophagitis; R10.13 Epigastric pain; K64.8 Other hemorrhoids; E11.9 Type 2 diabetes mellitus without complications; Z80.51 Family history of malignant neoplasm of kidney
CPT/HCPCS: 82947; 99100; J1610; J2250; J2704

== ENCOUNTER 2024-10-09 12:32 | Observation (INO) | payer MEDICARE, OTHER ==
[2024-10-09] MEDS ORDERED: DUONEB 0.5-3 MG/3 ml Neb IH ONE (12:45)
[2024-10-09] MEDS: DUONEB 0.5-3 MG/3 ml Neb IH ONE (12:46)
--- NOTE | 2024-10-09 12:49 | ERPHSYRPT ---
- History of Present Illness Time Seen by Provider: 10/09/24 12:39 Source: patient Exam Limitations: no limitations Patient Subjective Stated Complaint: pt c/o of being sick since 08/31/2024 but was around a friend this past weekend that was recently diagnosed with RSV, cough, wheezing Triage Nursing Assessment: Pt brought self to the ER, hypertensive, denies pain, wheezing heard across the room, pulses normal, skin n/w/d, cough with thick yellow/green/clear sputum, denies chest pain Physician History: 73-year-old female with history of hypertension, hyperlipidemia, hypothyroidism, atrial fibrillation on Eliquis presented in the ER for being sick off and on for almost a month and a half, got worse for the last 2 days after she was with a friend who diagnosed with RSV. Patient reports coughing up clear to yellow sputum moderate in amount and gradually increasing shortness of breath to the point getting short of air moving from 1 room to another. She has been using nebulizer which she has at home but no complete recovery. Subjective feeling of fever and chills. Feeling weak fatigued and tired. Denies any chest pain or palpitations. Allergies/Adverse Reactions: Sulfa (Sulfonamide Antibiotics) [Sulfa(Sulfonamide Antibiotics)] Allergy (Intermediate, Verified 10/09/24 12:44) Hives Home Medications: Gabapentin 300 mg PO HS 07/30/18 [History] Lisinopril 5 mg [Zestril 5 MG] 5 mg PO DAILY 08/30/22 [History] Alirocumab [Praluent Pen] 75 mg SQ Q14D 10/09/24 [History] Dronedarone Hydrochloride 400* [Multaq 400 MG] 400 mg PO BID 10/09/24 [ History] Levothyroxine Sodium [Unithroid] 25 mcg PO DAILY 10/09/24 [History] Metoprolol Succinate 50 mg [Toprol Xl 50 MG] 50 mg PO DAILY 10/09/24 [History] Hx Tetanus, Diphtheria Vaccination/Date Given: No Hx Influenza Vaccination/Date Given: Yes Hx Pneumococcal Vaccination/Date Given: No Travel Risk - International Travel Have you traveled outside of the country in past 3 weeks: No - Emerging Infectious Disease Are you exhibiting symptoms associated with any current EIDs: Yes Symptoms: Shortness of Breath - Review of Systems Constitutional: Fever, Chills, Fatigue Eyes: No Symptoms Ears, Nose, & Throat: Nose Congestion, Throat Swelling Respiratory: Cough, Dyspnea Cardiac: No Symptoms Abdominal/Gastrointestinal: No Symptoms Genitourinary Symptoms: No Symptoms Musculoskeletal: Myalgias Skin: No Symptoms Neurological: No Symptoms Endocrine: No Symptoms Immunological/Allergic: No Symptoms - Past Medical History Pertinent Past Medical History: Yes Neurological History: No Pertinent History ENT History: Cataracts Cardiac History: Arrhythmia, High Cholesterol, Hypertension Respiratory History: Asthma, Bronchitis, Sleep Apnea Endocrine Medical History: Diabetes Type II Musculoskeletal History: No Pertinent History GI Medical History: GERD History: No Pertinent History Psycho-Social History: No Pertinent History Female Reproductive Disorders: No Pertinent History Other Medical History: mitral valve prolapse - Past Surgical History Past Surgical History: Yes (Knee replacement) Neuro Surgical History: No Pertinent History Cardiac: No Pertinent History Respiratory: No Pertinent History Gastrointestinal: Cholecystectomy Genitourinary: No Pertinent History Musculoskeletal: Joint Replacement Female Surgical History: Hysterectomy Other Surgical History: ankle sx with plate 2008 - Social History Smoking Status: Never smoker Exposure to second hand smoke: No Drug Use: none - Social Determinants of Health Will the patient participate in the screening: Yes Do you worry about a steady place to live?: No Do you have any problems with any of the following?: No known problems In the past 12 months,have you had to go without utilities?: No Transportation Issues: No Has anyone in your support network made you feel unsafe?: No Have you or anyone in your house had to go w/o enough food: No - Nursing Vital Signs Nursing Vital Signs: Initial Vital Signs Temperature 97.8 F 10/09/24 12:34 Pulse Rate 80 10/09/24 12:34 Respiratory Rate 23 10/09/24 12:34 Blood Pressure 151/95 10/09/24 12:34 O2 Sat by Pulse Oximetry 98 10/09/24 12:34 Pain Scale Pain Intensity 0 - Physical Exam General Appearance: no apparent distress, alert Eye Exam: PERRL/EOMI Ears, Nose, Throat Exam: hearing grossly normal, pharyngeal erythema Neck Exam: normal inspection, non-tender, supple, full range of motion Respiratory Exam: wheezing, No respiratory distress, No accessory muscle use Abdominal/Gastrointestinal Exam: soft, normal bowel sounds, No tenderness Extremity Exam: non-tender, normal range of motion Neurologic Exam: alert, oriented x 3, cooperative, sponge packer II-XII nml as tested Skin Exam: normal color SpO2 Interpretation: normal SpO2: 98 O2 Delivery: Room Air - Course EKG Interpreted by Me: RATE (79), A-fib, NORMAL AXIS, NORMAL INTERVALS, NORMAL QRS Ordered Tests: Active Orders 24 hr Category Date Time Status Leather Roller STAT Care 10/09/24 12:39 Active EKG-ER Only STAT Care 10/09/24 12:39 Active IV Insertion STAT Care 10/09/24 12:39 Active CHEST 1 VIEW (PORTABLE) Stat Exams 10/09/24 12:39 Completed BLOOD CULTURE Stat Lab 10/09/24 13:05 Received CBC W DIFF Stat Lab 10/09/24 13:05 Completed CMP Stat Lab 10/09/24 13:05 Completed Lactic Acid Stat Lab 10/09/24 12:52 Completed MAGNESIUM Stat Lab 10/09/24 13:05 Completed NT PRO BNPII Stat Lab 10/09/24 13:05 Completed TROPONIN Q4H Lab 10/09/24 13:05 Completed TROPONIN Q4H Lab 10/09/24 16:45 Ordered TROPONIN Q4H Lab 10/09/24 20:45 Ordered Medication Summary Discontinued Medications Generic Name Dose Route Start Last Admin Trade Name Freq PRN Reason Stop Dose Admin Albuterol/Ipratropium 3 ml 10/09/24 12:39 10/09/24 12:46 Ipratropium/Albuterol Sulfate 3 Ml Ampul.Neb IH 10/09/24 12:40 3 ml STAT ONE Administration Albuterol/Ipratropium Confirm 10/09/24 12:45 Ipratropium/Albuterol Sulfate 3 Ml Ampul.Neb Administered 10/09/24 12:46 Dose 3 ml IH .STK-MED ONE Lab/Rad Data: Laboratory Result Diagrams 10/09/24 13:05 10/09/24 13:05 Laboratory Results 10/09/24 10/09/24 10/09/24 Range/Units 13:05 13:05 13:05 WBC (3.98-10.04) x10^3/uL RBC (3.93-5.22) x10^6/uL Hgb (11.2-15.7) g/dL Hct (34.1-44.9) % MCV (79.4-94.8) fL MCH (25.6-32.2) pg MCHC (32.2-35.5) g/dL RDW (11.7-14.4) % Plt Count (182-369) x10^3/uL MPV (9.4-12.3) fL Gran % (34.0-71.1) % Immature Gran % (Auto) (0.001-0.429) % Nucleat RBC Rel Count (0.00-0.2) % Eos # (Auto) (0.04-0.36) x10^3/uL Immature Gran # (Auto) (0.001-0.031) x10^3u/L Absolute Lymphs (auto) (1.18-3.74) x10^3/uL Absolute Monos (auto) (0.24-0.86) x10^3/uL Absolute Nucleated RBC (0.00-0.012) x10^3u/L Lymphocytes % (19.3-51.7) % Monocytes % (4.7-12.5) % Eosinophils % (0.7-5.8) % Basophils % (0.1-1.2) % Absolute Granulocytes (1.56-6.13) x10^3/uL Basophils # (0.01-0.08) x10^3/uL Sodium 141 (135-145) mmol/L Potassium 4.4 (3.5-5.1) mmol/L Chloride 106 (98-107) mmol/L Carbon Dioxide 22 (22-30) mmol/L Anion Gap 17.3 H (5-15) MEQ/L BUN 13 (7-17) mg/dL Creatinine 0.71 (0.52-1.04) mg/dL Estimated GFR 89.2 ML/MIN Glucose 103 (74-106) mg/dL Lactic Acid (0.4-2.0) Calcium 8.8 (8.4-10.2) mg/dL Magnesium 2.0 (1.6-2.3) mg/dL Total Bilirubin 0.70 (0.2-1.3) mg/dL AST 27 (14-36) U/L ALT 26 (0-35) U/L Alkaline Phosphatase 74 (38-126) U/L Troponin I < 0.012 (0.000-0.033) ng/mL NT-Pro-B Natriuret Pep 760 (<300) pg/mL Serum Total Protein 6.8 (6.3-8.2) g/dL Albumin 4.0 (3.5-5.0) g/dL Influenza Type A Ag NEGATIVE (NEGATIVE) Influenza Type B Ag NEGATIVE (NEGATIVE) RSV (PCR) POSITIVE A (NEGATIVE) SARS-CoV-2 (PCR) NEGATIVE (NEGATIVE) 10/09/24 10/09/24 Range/Units 13:05 12:52 WBC 7.0 (3.98-10.04) x10^3/uL RBC 4.49 (3.93-5.22) x10^6/uL Hgb 13.6 (11.2-15.7) g/dL Hct 41.3 (34.1-44.9) % MCV 92.0 (79.4-94.8) fL MCH 30.3 (25.6-32.2) pg MCHC 32.9 (32.2-35.5) g/dL RDW 13.7 (11.7-14.4) % Plt Count 273 (182-369) x10^3/uL MPV 9.0 L (9.4-12.3) fL Gran % 60.3 (34.0-71.1) % Immature Gran % (Auto) 0.4 (0.001-0.429) % Nucleat RBC Rel Count 0.0 (0.00-0.2) % Eos # (Auto) 0.12 (0.04-0.36) x10^3/uL Immature Gran # (Auto) 0.03 (0.001-0.031) x10^3u/L Absolute Lymphs (auto) 1.75 (1.18-3.74) x10^3/uL Absolute Monos (auto) 0.85 (0.24-0.86) x10^3/uL Absolute Nucleated RBC 0.00 (0.00-0.012) x10^3u/L Lymphocytes % 25.0 (19.3-51.7) % Monocytes % 12.2 (4.7-12.5) % Eosinophils % 1.7 (0.7-5.8) % Basophils % 0.4 (0.1-1.2) % Absolute Granulocytes 4.21 (1.56-6.13) x10^3/uL Basophils # 0.03 (0.01-0.08) x10^3/uL Sodium (135-145) mmol/L Potassium (3.5-5.1) mmol/L Chloride (98-107) mmol/L Carbon Dioxide (22-30) mmol/L Anion Gap (5-15) MEQ/L BUN (7-17) mg/dL Creatinine (0.52-1.04) mg/dL Estimated GFR ML/MIN Glucose (74-106) mg/dL Lactic Acid 1.4 (0.4-2.0) Calcium (8.4-10.2) mg/dL Magnesium (1.6-2.3) mg/dL Total Bilirubin (0.2-1.3) mg/dL AST (14-36) U/L ALT (0-35) U/L Alkaline Phosphatase (38-126) U/L Troponin I (0.000-0.033) ng/mL NT-Pro-B Natriuret Pep (<300) pg/mL Serum Total Protein (6.3-8.2) g/dL Albumin (3.5-5.0) g/dL Influenza Type A Ag (NEGATIVE) Influenza Type B Ag (NEGATIVE) RSV (PCR) (NEGATIVE) SARS-CoV-2 (PCR) (NEGATIVE) - Progress Progress: improved, re-examined Air Movement: good Progress Note: 10/09/24 15:30 73-year-old is evaluated in the ER with increasing shortness of breath with cough productive of clear to yellow sputum with wheezing despite using breathing treatments at home. Patient has also taken some antibiotics from primary care and today sent in here by pulmonology for further evaluation. Patient is mildly tachypneic on presentation, given neb treatment and steroids, feeling better on reevaluation. EKG is A-fib rate control and patient is anticoagulated, low concerns for PE. Normal white count, chemistries fairly unremarkable with negative troponins. Patient has positive RSV. Chest x-ray is negative for any acute cardiopulmonary findings reviewed by me followed by official read. Discussed with Dr. Poole patient's primary bag turner, recommended observation admission with frequent nebs and steroids Discussed the results of workup with patient and plan of observation admission which she understands and agrees. Discussed with Dr. Nation, reviewed history, workup and patient is being admitted for observation. Blood Culture(s) Obtained: Yes Antibiotics given: No Discussed with Dr.: Other (Dr. Ramos hospitalist) Will see patient in: hospital (observation) Counseled pt/family regarding: lab results, diagnosis, rad results Medical Desision Making - Independent Historian Additional History obtained from: PCP - External Record(s) Reviewed Records reviewed as a part of evaluation & management: Clinic - Discussion of managment Care discussed with:: specialist ([facility], Dr. Nation hospitalist) Reviewed:: Test results Agreed on:: Treatment plan, place in obs Will see patient: in hospital - Diagnostic Testing Diagnostic test were ordered, analyzed, and reviewed by me: Yes Radiological Interpretation: Interpreted by me, Reviewed by me - Risk of complications The pt has a mod risk of morbidity or mortality based on: Need for prescription drug management The pt has a high risk of morbidity or mortality based on: Decision regarding hospitilization or escalation of hosp level of care - Departure Departure Disposition: Observation Clinical Impression: Acute bronchitis due to respiratory syncytial virus (RSV), RSV bronchitis Condition: Stable Critical Care Time: No Referrals: JACQUELINE DIAZ MD [Primary Care Provider] - Follow up/PCP as directed
[2024-10-09 13:13] LABS: Absolute Neutrophil Ct (ANC) 4.21 x10^3/uL (1.56-6.13); BASOPHIL % 0.4 % (0.1-1.2); Basophil (Absolute #) 0.03 x10^3/uL (0.01-0.08); Eosinophil % 1.7 % (0.7-5.8); Eosinophil (Absolute #) 0.12 x10^3/uL (0.04-0.36); Hematocrit 41.3 % (34.1-44.9); Hemoglobin 13.6 g/dL (11.2-15.7); IMMATURE GRAN # 0.03 x10^3u/L (0.001-0.031); IMMATURE GRAN % 0.4 % (0.001-0.429); Lymphocyte (Absolute #) 1.75 x10^3/uL (1.18-3.74); Mean Corpuscular Hemoglobin 30.3 pg (25.6-32.2); Mean Corpuscular Hgb Concent. 32.9 g/dL (32.2-35.5); Monocyte (Absolute #) 0.85 x10^3/uL (0.24-0.86); Monocytes % 12.2 % (4.7-12.5); Neutrophil % 60.3 % (34.0-71.1); Platelet Count 273 x10^3/uL (182-369); Red Blood Count 4.49 x10^6/uL (3.93-5.22); Red Cell Distribution Width 13.7 % (11.7-14.4)
--- NOTE | 2024-10-09 13:32 | XRAY ---
Indication: Short of breath. Comparison: August 10, 2018 Portable chest inflated with new tiny left mid lung calcified granuloma. No focal infiltrate, consolidation, or large effusion. Heart and mediastinal structures within normal limits. Bony thorax intact. Impression: Continued nonacute chest. Incidental old granulomatous disease.
[2024-10-09 13:39] LABS: ANION GAP 17.3 MEQ/L (5-15); BILIRUBIN,TOTAL 0.7 mg/dL (0.2-1.3); Calcium 8.8 mg/dL (8.4-10.2); Creatinine 1 0.71 mg/dL (0.52-1.04); EST GLOMERULAR FILTRATION RATE 89.2 ML/MIN; Potassium 4.4 mmol/L (3.5-5.1); Total Protein 6.8 g/dL (6.3-8.2)
[2024-10-09 13:52] LABS: INFLUENZA A NEGATIVE (NEGATIVE); INFLUENZA B NEGATIVE (NEGATIVE); SARS-CoV-2 Xpert Express NEGATIVE (NEGATIVE)
[2024-10-09 13:58] LABS: RESPIRATORY SYNCTIAL VIRUS POSITIVE (NEGATIVE)
[2024-10-09] MEDS ORDERED: solu-MEDROL ONE (15:38)
[2024-10-09] MEDS ORDERED: Sterile H2O 10 ml IJ ONE (15:38)
[2024-10-09] MEDS: solu-MEDROL 125 MG, Sterile H2O 10 ml 2 ML IV ONE (15:39)
--- NOTE | 2024-10-09 16:08 | PCM.HP ---
History of Present Illness - Chief Complaint Chief Complaint: RSV Date: 10/09/24 History of Present Illness: is a 73-year-old female with a history of hypertension, hyperlipidemia, hypothyroidism, and atrial fibrillation on Eliquis presented to ED 10/09/24 with progressively worsening shortness of breath and a productive cough over the past two days, following a month-long intermittent illness with FLUA and recent exposure to RSV. She reported increasing dyspnea with minimal exertion, moderate amounts of clear to green/yellow sputum, subjective fevers, chills, fatigue, and weakness. Despite using home nebulizer treatments and a prior course of antibiotics, her symptoms have persisted. Upon arrival to ED she was mildly tachypneic but improved following nebulizer therapy. Laboratory findings were unremarkable, with normal WBC count, stable metabolic panel, and negative troponins. EKG demonstrated atrial fibrillation with controlled rate, and chest X-ray showed no acute cardiopulmonary pathology. Given her RSV diagnosis and persistent symptoms, she is admitted for observation with frequent nebulizer treatments, steroids, and abx. . - Review of Systems Constitutional: Fever, Chills, Weakness Eyes: No Symptoms Ears, Nose, & Throat: Nose Congestion, Sinus Drainage Respiratory: Cough, Short Of Breath, Wheezing Cardiac: No Symptoms Abdominal/Gastrointestinal: No Symptoms Genitourinary Symptoms: No Symptoms Musculoskeletal: No Symptoms Skin: No Symptoms Neurological: No Symptoms Psychological: No Symptoms Endocrine: No Symptoms Hematologic/Lymphatic: No Symptoms Immunological/Allergic: No Symptoms Medications & Allergies Home Medications: Home Medication List Gabapentin 300 mg PO HS 07/30/18 [History Confirmed 10/09/24] Lisinopril 5 mg [Zestril 5 MG] 5 mg PO DAILY 08/30/22 [History Confirmed 10/09/24] Alirocumab [Praluent Pen] 75 mg SQ Q14D 10/09/24 [History Confirmed 10/09/24] Dronedarone Hydrochloride 400* [Multaq 400 MG] 400 mg PO BID 10/09/24 [History Confirmed 10/09/24] Levothyroxine Sodium [Unithroid] 25 mcg PO DAILY 10/09/24 [History Confirmed 10/09/24] Metoprolol Succinate 50 mg [Toprol Xl 50 MG] 50 mg PO DAILY 10/09/24 [History Confirmed 10/09/24] Allergies/Adverse Reactions: Allergies Allergy/AdvReac Type Severity Reaction Status Date / Time Sulfa (Sulfonamide Allergy Intermediate Hives Verified 10/09/24 12:44 Antibiotics) [Sulfa(Sulfonamide Antibiotics)] - Past Medical History Past Medical History: Yes Neurological History: No Pertinent History ENT History: Cataracts Cardiac History: Arrhythmia, High Cholesterol, Hypertension Respiratory History: Asthma, Bronchitis, Sleep Apnea Endocrine Medical History: Diabetes Type II Musculoskelatal History: No Pertinent History GI Medical History: GERD History: No Pertinent History Pyscho-Social History: No Pertinent History Reproductive Disorders: No Pertinent History Comment: mitral valve prolapse - Past Surgical History Past Surgical History: Yes (Knee replacement) Neuro Surgical History: No Pertinent History Cardiac History: No Pertinent History Respiratory Surgery: No Pertinent History GI Surgical History: Cholecystectomy Genitourinary Surgical Hx: No Pertinent History Musculskeletal Surgical Hx: Joint Replacement Female Surgical History: Hysterectomy Other Surgical History: ankle sx with plate 2008 Significant Family History: heart disease, cancer, diabetes, stroke - Social History Smoking Status: Never smoker Exposure to second hand smoke: No Alcohol: None Drug Use: none - Social Determinants of Health Will the patient participate in the screening: Yes Do you worry about a steady place to live?: No Do you have any problems with any of the following?: No known problems In the past 12 months,have you had to go without utilities?: No Have you or anyone in your house had to go without enough: No Transportation Issues: No Has anyone in your support network made you feel unsafe?: No - Physical Exam Vital Signs: Vital Signs - 24 hr Temp Pulse Resp BP BP Pulse Ox 10/09/24 15:33 98 10/09/24 15:31 67 15 139/67 99 10/09/24 15:00 68 18 124/88 97 10/09/24 14:31 67 16 129/70 98 10/09/24 14:01 88 18 117/73 98 10/09/24 13:31 83 16 123/83 95 10/09/24 12:51 76 18 98 10/09/24 12:34 97.8 F 77 16 151/95 151/95 97 General Appearance: no apparent distress Neurologic Exam: alert, oriented x 3, cooperative Eye Exam: PERRL/EOMI Ears, Nose, Throat Exam: normal ENT inspection Neck Exam: normal inspection Respiratory Exam: diminished breath sounds, wheezing Cardiovascular Exam: irregular Gastrointestinal/Abdomen Exam: soft, normal bowel sounds Pelvic Exam: not done Rectal Exam: deferred Extremity Exam: normal inspection Skin Exam: pale Results - Labs Lab/Micro Results: Lab Results-Last 24 Hours 10/09/24 10/09/24 10/09/24 Range/Units 12:52 13:05 13:05 WBC 7.0 (3.98-10.04) x10^3/uL RBC 4.49 (3.93-5.22) x10^6/uL Hgb 13.6 (11.2-15.7) g/dL Hct 41.3 (34.1-44.9) % MCV 92.0 (79.4-94.8) fL MCH 30.3 (25.6-32.2) pg MCHC 32.9 (32.2-35.5) g/dL RDW 13.7 (11.7-14.4) % Plt Count 273 (182-369) x10^3/uL MPV 9.0 L (9.4-12.3) fL Gran % 60.3 (34.0-71.1) % Immature Gran % (Auto) 0.4 (0.001-0.429) % Nucleat RBC Rel Count 0.0 (0.00-0.2) % Eos # (Auto) 0.12 (0.04-0.36) x10^3/uL Immature Gran # (Auto) 0.03 (0.001-0.031) x10^3u/L Absolute Lymphs (auto) 1.75 (1.18-3.74) x10^3/uL Absolute Monos (auto) 0.85 (0.24-0.86) x10^3/uL Absolute Nucleated RBC 0.00 (0.00-0.012) x10^3u/L Lymphocytes % 25.0 (19.3-51.7) % Monocytes % 12.2 (4.7-12.5) % Eosinophils % 1.7 (0.7-5.8) % Basophils % 0.4 (0.1-1.2) % Absolute Granulocytes 4.21 (1.56-6.13) x10^3/uL Basophils # 0.03 (0.01-0.08) x10^3/uL Sodium 141 (135-145) mmol/L Potassium 4.4 (3.5-5.1) mmol/L Chloride 106 (98-107) mmol/L Carbon Dioxide 22 (22-30) mmol/L Anion Gap 17.3 H (5-15) MEQ/L BUN 13 (7-17) mg/dL Creatinine 0.71 (0.52-1.04) mg/dL Estimated GFR 89.2 ML/MIN Glucose 103 (74-106) mg/dL Lactic Acid 1.4 (0.4-2.0) Calcium 8.8 (8.4-10.2) mg/dL Magnesium 2.0 (1.6-2.3) mg/dL Total Bilirubin 0.70 (0.2-1.3) mg/dL AST 27 (14-36) U/L ALT 26 (0-35) U/L Alkaline Phosphatase 74 (38-126) U/L Troponin I (0.000-0.033) ng/mL NT-Pro-B Natriuret Pep 760 (<300) pg/mL Serum Total Protein 6.8 (6.3-8.2) g/dL Albumin 4.0 (3.5-5.0) g/dL Influenza Type A Ag (NEGATIVE) Influenza Type B Ag (NEGATIVE) RSV (PCR) (NEGATIVE) SARS-CoV-2 (PCR) (NEGATIVE) 10/09/24 10/09/24 Range/Units 13:05 13:05 WBC (3.98-10.04) x10^3/uL RBC (3.93-5.22) x10^6/uL Hgb (11.2-15.7) g/dL Hct (34.1-44.9) % MCV (79.4-94.8) fL MCH (25.6-32.2) pg MCHC (32.2-35.5) g/dL RDW (11.7-14.4) % Plt Count (182-369) x10^3/uL MPV (9.4-12.3) fL Gran % (34.0-71.1) % Immature Gran % (Auto) (0.001-0.429) % Nucleat RBC Rel Count (0.00-0.2) % Eos # (Auto) (0.04-0.36) x10^3/uL Immature Gran # (Auto) (0.001-0.031) x10^3u/L Absolute Lymphs (auto) (1.18-3.74) x10^3/uL Absolute Monos (auto) (0.24-0.86) x10^3/uL Absolute Nucleated RBC (0.00-0.012) x10^3u/L Lymphocytes % (19.3-51.7) % Monocytes % (4.7-12.5) % Eosinophils % (0.7-5.8) % Basophils % (0.1-1.2) % Absolute Granulocytes (1.56-6.13) x10^3/uL Basophils # (0.01-0.08) x10^3/uL Sodium (135-145) mmol/L Potassium (3.5-5.1) mmol/L Chloride (98-107) mmol/L Carbon Dioxide (22-30) mmol/L Anion Gap (5-15) MEQ/L BUN (7-17) mg/dL Creatinine (0.52-1.04) mg/dL Estimated GFR ML/MIN Glucose (74-106) mg/dL Lactic Acid (0.4-2.0) Calcium (8.4-10.2) mg/dL Magnesium (1.6-2.3) mg/dL Total Bilirubin (0.2-1.3) mg/dL AST (14-36) U/L ALT (0-35) U/L Alkaline Phosphatase (38-126) U/L Troponin I < 0.012 (0.000-0.033) ng/mL NT-Pro-B Natriuret Pep (<300) pg/mL Serum Total Protein (6.3-8.2) g/dL Albumin (3.5-5.0) g/dL Influenza Type A Ag NEGATIVE (NEGATIVE) Influenza Type B Ag NEGATIVE (NEGATIVE) RSV (PCR) POSITIVE A (NEGATIVE) SARS-CoV-2 (PCR) NEGATIVE (NEGATIVE) - Radiology Impressions Radiology Exams & Impressions: Radiology Procedures Category Date Time Status CHEST 1 VIEW (PORTABLE) Stat Exams 10/09/24 12:39 Completed - Other Procedures and Tests Respiratory Therapy 10/09/24 15:55 Respiratory Therapy Consult ONCE Assessment/Plan (1) Acute bronchitis due to respiratory syncytial virus (RSV) Current Visit: Yes Status: Acute Assessment & Plan: -Supportive care with antipyretics (acetaminophen or ibuprofen) for fever and discomfort, anti-emetics -Supplemental oxygen with goal spo2 > 90%- on RA which is her baseline -Bronchodilators prn -solumedrol 40mg BID -Ceftriaxone -Normal WBC count, unremarkable metabolic panel Code(s): J20.5 - ACUTE BRONCHITIS DUE TO RESPIRATORY SYNCYTIAL VIRUS (2) Type 2 diabetes mellitus Current Visit: Yes Status: Acute Assessment & Plan: -ADA diet -A1c -SSI (3) GERD (gastroesophageal reflux disease) Current Visit: Yes Status: Acute Assessment & Plan: -Protonix Code(s): K21.9 - GASTRO-ESOPHAGEAL REFLUX DISEASE WITHOUT ESOPHAGITIS (4) HLD (hyperlipidemia) Current Visit: Yes Status: Acute Assessment & Plan: -continue statin Code(s): E78.5 - HYPERLIPIDEMIA, UNSPECIFIED (5) HTN (hypertension) Current Visit: Yes Status: Acute Assessment & Plan: -BP stable continue home meds Code(s): I10 - ESSENTIAL (PRIMARY) HYPERTENSION (6) Hypothyroid Current Visit: Yes Status: Acute Assessment & Plan: -continue home meds Code(s): E03.9 - HYPOTHYROIDISM, UNSPECIFIED (7) Afib Current Visit: Yes Status: Acute Assessment & Plan: -Continue Eliquis/multaq/metoprolol -EKG with AFIB HR controlled -Tele VTE: Eliquis PPI:Protonix Dispo: 1-2 days Code status: Full code Code(s): I48.91 - UNSPECIFIED ATRIAL FIBRILLATION Telemedicine Encounter - Telemedicine Encounter Telemedicine Encounter: "The entirety of this encounter was performed via Telemedicine" This visit was performed using real-time audio and video connection between my location and thepatients locationwith the assistance of a surrogateat the patients location. Written or verbal consent was obtained from the patient/guardian to perform this visit using[facility] technology. Any patient questions regarding the telemedicine interaction were answered.
[2024-10-09] MEDS ORDERED: Xopenex 1.25 MG/0.5 ML UD NEBULE IH PRN (16:38)
[2024-10-09] MEDS ORDERED: HUMALOG SQ PRN (16:38)
[2024-10-09] MEDS: PROVENTIL 2.5 MG/3 ML NEB IH SCH (16:57)
[2024-10-09] MEDS ORDERED: ROCEPHIN 1 GM / 100 ML NaCl 1 GM/100 ML IVPB IV ONE (22:26)
[2024-10-09] MEDS: ROCEPHIN 1 GM / 100 ML NaCl 1 GM/100 ML IVPB IV SCH (22:34)
[2024-10-10] MEDS: solu-MEDROL 40 MG, Sterile H2O 10 ml 1 ML IV SCH (00:37)
[2024-10-10 04:47] LABS: Hematocrit 41.8 % (34.1-44.9); Hemoglobin 13.4 g/dL (11.2-15.7); Mean Cell Volume 92.3 fL (79.4-94.8); Mean Corpuscular Hemoglobin 29.6 pg (25.6-32.2); Mean Corpuscular Hgb Concent. 32.1 g/dL (32.2-35.5); Mean Platelet Volume 9.1 fL (9.4-12.3); Platelet Count 288 x10^3/uL (182-369); Red Blood Count 4.53 x10^6/uL (3.93-5.22); Red Cell Distribution Width 13.7 % (11.7-14.4); White Blood Count 5.6 x10^3/uL (3.98-10.04)
[2024-10-10 05:01] LABS: ALBUMIN 4.3 g/dL (3.5-5.0); BILIRUBIN,TOTAL 0.4 mg/dL (0.2-1.3); Calcium 9.3 mg/dL (8.4-10.2); Creatinine 1 0.56 mg/dL (0.52-1.04); EST GLOMERULAR FILTRATION RATE 95.7 ML/MIN; Potassium 3.6 mmol/L (3.5-5.1); Total Protein 7.4 g/dL (6.3-8.2)
--- NOTE | 2024-10-10 05:13 | PCM.NOTE ---
Date and Time: 10/10/24511 Subjective Assessment: is a 73-year-old female with a history of hypertension, hyperlipidemia, hypothyroidism, and atrial fibrillation on Eliquis presented to ED 10/09/24 with progressively worsening shortness of breath and a productive cough over the past two days, following a month-long intermittent illness with FLUA and recent exposure to RSV. She reported increasing dyspnea with minimal exertion, moderate amounts of clear to green/yellow sputum, subjective fevers, chills, fatigue, and weakness. Despite using home nebulizer treatments and a prior course of antibiotics, her symptoms have persisted. Upon arrival to ED she was mildly tachypneic but improved following nebulizer therapy. Laboratory findings were u nremarkable, with normal WBC count, stable metabolic panel, and negative troponins. EKG demonstrated atrial fibrillation with controlled rate, and chest X-ray showed no acute cardiopulmonary pathology. Given her RSV diagnosis and persistent symptoms, she is admitted for observation with frequent nebulizer treatments, steroids, and abx. 10/10/24: Met with patient bedside. Endorses some improvement in dyspnea. Poor sleep last night secondary to steroids. Will decrease steroids today. Possible discharge tomorrow. Denies fever,cp, abdominal pain, BUENO, dizziness, N/V/D. - Review of Systems Constitutional: Weakness Eyes: No Symptoms Ears, Nose, & Throat: No Symptoms Respiratory: Cough, Short Of Breath Cardiac: No Symptoms Abdominal/Gastrointestinal: No Symptoms Genitourinary Symptoms: No Symptoms Musculoskeletal: No Symptoms Skin: No Symptoms Neurological: No Symptoms Psychological: No Symptoms Endocrine: No Symptoms Hematologic/Lymphatic: No Symptoms Immunological/Allergic: No Symptoms Objective Exam General Appearance: no apparent distress Neurologic Exam: alert, oriented x 3, cooperative Skin Exam: normal color Eye Exam: PERRL Ears, Nose, Throat Exam: normal ENT inspection Neck Exam: normal inspection Respiratory Exam: lungs clear, wheezing Cardiovascular Exam: regular rate/rhythm, normal heart sounds Gastrointestinal/Abdomen Exam: soft, normal bowel sounds Extremity Exam: normal inspection Back Exam: normal inspection Pelvic Exam: deferred Rectal Exam: deferred Objective Data Vital Signs: Vital Signs - 24 hr Temp Pulse Resp BP BP Pulse Ox 10/10/24 04:00 83 18 10/10/24 01:16 83 16 96 10/10/24 00:00 96.0 F 75 20 141/72 97 10/09/24 20:00 76 21 10/09/24 17:00 78 20 98 10/09/24 16:05 97.8 F 75 20 119/70 99 10/09/24 15:33 98 10/09/24 15:31 67 15 139/67 99 10/09/24 15:00 68 18 124/88 97 10/09/24 14:31 67 16 129/70 98 10/09/24 14:01 88 18 117/73 98 10/09/24 13:31 83 16 123/83 95 10/09/24 12:51 76 18 98 10/09/24 12:34 97.8 F 77 16 151/95 151/95 97 Pain Assessment - Last Documented Pain Intensity 0 Intake and Output: Intake & Output 10/07/24 10/08/24 10/09/24 10/10/24 11:59 11:59 11:59 11:59 Intake Total 960 Balance 960 Weight 90 kg Lab Results: Lab Results-Last 24 Hours 10/09/24 10/09/24 10/09/24 Range/Units 05:00 12:52 13:05 WBC 7.0 (3.98-10.04) x10^3/uL RBC 4.49 (3.93-5.22) x10^6/uL Hgb 13.6 (11.2-15.7) g/dL Hct 41.3 (34.1-44.9) % MCV 92.0 (79.4-94.8) fL MCH 30.3 (25.6-32.2) pg MCHC 32.9 (32.2-35.5) g/dL RDW 13.7 (11.7-14.4) % Plt Count 273 (182-369) x10^3/uL MPV 9.0 L (9.4-12.3) fL Gran % 60.3 (34.0-71.1) % Immature Gran % (Auto) 0.4 (0.001-0.429) % Nucleat RBC Rel Count 0.0 (0.00-0.2) % Eos # (Auto) 0.12 (0.04-0.36) x10^3/uL Immature Gran # (Auto) 0.03 (0.001-0.031) x10^3u/L Absolute Lymphs (auto) 1.75 (1.18-3.74) x10^3/uL Absolute Monos (auto) 0.85 (0.24-0.86) x10^3/uL Absolute Nucleated RBC 0.00 (0.00-0.012) x10^3u/L Lymphocytes % 25.0 (19.3-51.7) % Monocytes % 12.2 (4.7-12.5) % Eosinophils % 1.7 (0.7-5.8) % Basophils % 0.4 (0.1-1.2) % Absolute Granulocytes 4.21 (1.56-6.13) x10^3/uL Basophils # 0.03 (0.01-0.08) x10^3/uL Sodium (135-145) mmol/L Potassium (3.5-5.1) mmol/L Chloride (98-107) mmol/L Carbon Dioxide (22-30) mmol/L Anion Gap (5-15) MEQ/L BUN (7-17) mg/dL Creatinine (0.52-1.04) mg/dL Estimated GFR ML/MIN Glucose (74-106) mg/dL POC Glucometer (74 to 106) mg/dL Hemoglobin A1c 5.43 (4.5-6.0) % Lactic Acid 1.4 (0.4-2.0) Calcium (8.4-10.2) mg/dL Magnesium (1.6-2.3) mg/dL Total Bilirubin (0.2-1.3) mg/dL AST (14-36) U/L ALT (0-35) U/L Alkaline Phosphatase (38-126) U/L Troponin I (0.000-0.033) ng/mL NT-Pro-B Natriuret Pep (<300) pg/mL Serum Total Protein (6.3-8.2) g/dL Albumin (3.5-5.0) g/dL Influenza Type A Ag (NEGATIVE) Influenza Type B Ag (NEGATIVE) RSV (PCR) (NEGATIVE) SARS-CoV-2 (PCR) (NEGATIVE) 10/09/24 10/09/24 10/09/24 Range/Units 13:05 13:05 13:05 WBC (3.98-10.04) x10^3/uL RBC (3.93-5.22) x10^6/uL Hgb (11.2-15.7) g/dL Hct (34.1-44.9) % MCV (79.4-94.8) fL MCH (25.6-32.2) pg MCHC (32.2-35.5) g/dL RDW (11.7-14.4) % Plt Count (182-369) x10^3/uL MPV (9.4-12.3) fL Gran % (34.0-71.1) % Immature Gran % (Auto) (0.001-0.429) % Nucleat RBC Rel Count (0.00-0.2) % Eos # (Auto) (0.04-0.36) x10^3/uL Immature Gran # (Auto) (0.001-0.031) x10^3u/L Absolute Lymphs (auto) (1.18-3.74) x10^3/uL Absolute Monos (auto) (0.24-0.86) x10^3/uL Absolute Nucleated RBC (0.00-0.012) x10^3u/L Lymphocytes % (19.3-51.7) % Monocytes % (4.7-12.5) % Eosinophils % (0.7-5.8) % Basophils % (0.1-1.2) % Absolute Granulocytes (1.56-6.13) x10^3/uL Basophils # (0.01-0.08) x10^3/uL Sodium 141 (135-145) mmol/L Potassium 4.4 (3.5-5.1) mmol/L Chloride 106 (98-107) mmol/L Carbon Dioxide 22 (22-30) mmol/L Anion Gap 17.3 H (5-15) MEQ/L BUN 13 (7-17) mg/dL Creatinine 0.71 (0.52-1.04) mg/dL Estimated GFR 89.2 ML/MIN Glucose 103 (74-106) mg/dL POC Glucometer (74 to 106) mg/dL Hemoglobin A1c (4.5-6.0) % Lactic Acid (0.4-2.0) Calcium 8.8 (8.4-10.2) mg/dL Magnesium 2.0 (1.6-2.3) mg/dL Total Bilirubin 0.70 (0.2-1.3) mg/dL AST 27 (14-36) U/L ALT 26 (0-35) U/L Alkaline Phosphatase 74 (38-126) U/L Troponin I < 0.012 (0.000-0.033) ng/mL NT-Pro-B Natriuret Pep 760 (<300) pg/mL Serum Total Protein 6.8 (6.3-8.2) g/dL Albumin 4.0 (3.5-5.0) g/dL Influenza Type A Ag NEGATIVE (NEGATIVE) Influenza Type B Ag NEGATIVE (NEGATIVE) RSV (PCR) POSITIVE A (NEGATIVE) SARS-CoV-2 (PCR) NEGATIVE (NEGATIVE) 10/09/24 10/09/24 10/09/24 Range/Units 16:35 20:46 23:20 WBC (3.98-10.04) x10^3/uL RBC (3.93-5.22) x10^6/uL Hgb (11.2-15.7) g/dL Hct (34.1-44.9) % MCV (79.4-94.8) fL MCH (25.6-32.2) pg MCHC (32.2-35.5) g/dL RDW (11.7-14.4) % Plt Count (182-369) x10^3/uL MPV (9.4-12.3) fL Gran % (34.0-71.1) % Immature Gran % (Auto) (0.001-0.429) % Nucleat RBC Rel Count (0.00-0.2) % Eos # (Auto) (0.04-0.36) x10^3/uL Immature Gran # (Auto) (0.001-0.031) x10^3u/L Absolute Lymphs (auto) (1.18-3.74) x10^3/uL Absolute Monos (auto) (0.24-0.86) x10^3/uL Absolute Nucleated RBC (0.00-0.012) x10^3u/L Lymphocytes % (19.3-51.7) % Monocytes % (4.7-12.5) % Eosinophils % (0.7-5.8) % Basophils % (0.1-1.2) % Absolute Granulocytes (1.56-6.13) x10^3/uL Basophils # (0.01-0.08) x10^3/uL Sodium (135-145) mmol/L Potassium (3.5-5.1) mmol/L Chloride (98-107) mmol/L Carbon Dioxide (22-30) mmol/L Anion Gap (5-15) MEQ/L BUN (7-17) mg/dL Creatinine (0.52-1.04) mg/dL Estimated GFR ML/MIN Glucose (74-106) mg/dL POC Glucometer 153 H (74 to 106) mg/dL Hemoglobin A1c (4.5-6.0) % Lactic Acid (0.4-2.0) Calcium (8.4-10.2) mg/dL Magnesium (1.6-2.3) mg/dL Total Bilirubin (0.2-1.3) mg/dL AST (14-36) U/L ALT (0-35) U/L Alkaline Phosphatase (38-126) U/L Troponin I < 0.012 < 0.012 (0.000-0.033) ng/mL NT-Pro-B Natriuret Pep (<300) pg/mL Serum Total Protein (6.3-8.2) g/dL Albumin (3.5-5.0) g/dL Influenza Type A Ag (NEGATIVE) Influenza Type B Ag (NEGATIVE) RSV (PCR) (NEGATIVE) SARS-CoV-2 (PCR) (NEGATIVE) 10/10/24 10/10/24 Range/Units 04:35 04:35 WBC 5.6 (3.98-10.04) x10^3/uL RBC 4.53 (3.93-5.22) x10^6/uL Hgb 13.4 (11.2-15.7) g/dL Hct 41.8 (34.1-44.9) % MCV 92.3 (79.4-94.8) fL MCH 29.6 (25.6-32.2) pg MCHC 32.1 L (32.2-35.5) g/dL RDW 13.7 (11.7-14.4) % Plt Count 288 (182-369) x10^3/uL MPV 9.1 L (9.4-12.3) fL Gran % (34.0-71.1) % Immature Gran % (Auto) (0.001-0.429) % Nucleat RBC Rel Count (0.00-0.2) % Eos # (Auto) (0.04-0.36) x10^3/uL Immature Gran # (Auto) (0.001-0.031) x10^3u/L Absolute Lymphs (auto) (1.18-3.74) x10^3/uL Absolute Monos (auto) (0.24-0.86) x10^3/uL Absolute Nucleated RBC (0.00-0.012) x10^3u/L Lymphocytes % (19.3-51.7) % Monocytes % (4.7-12.5) % Eosinophils % (0.7-5.8) % Basophils % (0.1-1.2) % Absolute Granulocytes (1.56-6.13) x10^3/uL Basophils # (0.01-0.08) x10^3/uL Sodium 141 (135-145) mmol/L Potassium 3.6 (3.5-5.1) mmol/L Chloride 105 (98-107) mmol/L Carbon Dioxide 21 L (22-30) mmol/L Anion Gap 19.0 H (5-15) MEQ/L BUN 12 (7-17) mg/dL Creatinine 0.56 (0.52-1.04) mg/dL Estimated GFR 95.7 ML/MIN Glucose 196 H (74-106) mg/dL POC Glucometer (74 to 106) mg/dL Hemoglobin A1c (4.5-6.0) % Lactic Acid (0.4-2.0) Calcium 9.3 (8.4-10.2) mg/dL Magnesium (1.6-2.3) mg/dL Total Bilirubin 0.40 (0.2-1.3) mg/dL AST 33 (14-36) U/L ALT 38 H (0-35) U/L Alkaline Phosphatase 69 (38-126) U/L Troponin I (0.000-0.033) ng/mL NT-Pro-B Natriuret Pep (<300) pg/mL Serum Total Protein 7.4 (6.3-8.2) g/dL Albumin 4.3 (3.5-5.0) g/dL Influenza Type A Ag (NEGATIVE) Influenza Type B Ag (NEGATIVE) RSV (PCR) (NEGATIVE) SARS-CoV-2 (PCR) (NEGATIVE) Radiology Exams: Radiology Procedures Category Date Time Status CHEST 1 VIEW (PORTABLE) Stat Exams 10/09/24 12:39 Completed Assessment/Plan (1) Acute bronchitis due to respiratory syncytial virus (RSV) Current Visit: Yes Status: Acute Assessment & Plan: -Supportive care with antipyretics (acetaminophen or ibuprofen) for fever and discomfort, anti-emetics -Supplemental oxygen with goal spo2 > 90%- on RA which is her baseline -Bronchodilators prn -solumedrol 40mg BID -Ceftriaxone -Normal WBC count, unremarkable metabolic panel 10/09: -CBC reviewed with normal WBC -Decrease solumedrol to 40mg daily -Continue ceftriaxone Code(s): J20.5 - ACUTE BRONCHITIS DUE TO RESPIRATORY SYNCYTIAL VIRUS (2) Type 2 diabetes mellitus Current Visit: Yes Status: Acute Assessment & Plan: -ADA diet -A1c -SSI (3) GERD (gastroesophageal reflux disease) Current Visit: Yes Status: Acute Assessment & Plan: -Protonix Code(s): K21.9 - GASTRO-ESOPHAGEAL REFLUX DISEASE WITHOUT ESOPHAGITIS (4) HLD (hyperlipidemia) Current Visit: Yes Status: Acute Assessment & Plan: -continue statin Code(s): E78.5 - HYPERLIPIDEMIA, UNSPECIFIED (5) HTN (hypertension) Current Visit: Yes Status: Acute Assessment & Plan: -BP stable continue home meds Code(s): I10 - ESSENTIAL (PRIMARY) HYPERTENSION (6) Hypothyroid Current Visit: Yes Status: Acute Assessment & Plan: -continue home meds Code(s): E03.9 - HYPOTHYROIDISM, UNSPECIFIED (7) Afib Current Visit: Yes Status: Acute Assessment & Plan: -Continue Eliquis/multaq/metoprolol -EKG with AFIB HR controlled -Tele VTE: Eliquis PPI:Protonix Dispo: 1-2 days Code status: Full code Code(s): I48.91 - UNSPECIFIED ATRIAL FIBRILLATION Code(s): J20.5 - ACUTE BRONCHITIS DUE TO RESPIRATORY SYNCYTIAL VIRUS (2) Type 2 diabetes mellitus Current Visit: Yes Status: Acute (3) GERD (gastroesophageal reflux disease) Current Visit: Yes Status: Acute Code(s): K21.9 - GASTRO-ESOPHAGEAL REFLUX DISEASE WITHOUT ESOPHAGITIS (4) HLD (hyperlipidemia) Current Visit: Yes Status: Acute Code(s): E78.5 - HYPERLIPIDEMIA, UNSPECIFIED (5) HTN (hypertension) Current Visit: Yes Status: Acute Code(s): I10 - ESSENTIAL (PRIMARY) HYPERTENSION (6) Hypothyroid Current Visit: Yes Status: Acute Code(s): E03.9 - HYPOTHYROIDISM, UNSPECIFIED (7) Afib Current Visit: Yes Status: Acute Code(s): I48.91 - UNSPECIFIED ATRIAL FIBRILLATION
[2024-10-10] MEDS ORDERED: MEDICATION INTERVENTION MC SCH (07:15)
[2024-10-10] MEDS ORDERED: ALIROCUMAB 75 MG/ML SQ SCH (07:15)
[2024-10-10 08:40] LABS: ATYPICAL LYMPHS 3 %; Lymphocytes 10 % (19.3-51.7); Monocyte 1 % (4.7-12.5); Neutrophils 86 % (34.0-71.1); Platelet Estimate NORMAL (NORMAL); Total Cells Counted 100
[2024-10-10] MEDS: Toprol Xl 50 MG PO SCH (10:25)
[2024-10-10] MEDS: SYNTHROID 25 MCG PO SCH (10:25)
[2024-10-10] MEDS: Klor Con PO SCH (10:25)
[2024-10-10] MEDS: ELIQUIS 2.5 MG TABLET PO SCH (10:25)
[2024-10-10] MEDS: Protonix 40MG Tablet PO SCH (10:25)
[2024-10-10] MEDS: Multaq 400 MG PO SCH (10:25)
[2024-10-10] MEDS: Zestril 5 MG PO SCH (10:25)
[2024-10-10] MEDS: TYLENOL 325 MG PO PRN (11:02)
[2024-10-10] MEDS: NEURONTIN PO SCH (22:13)
[2024-10-10] MEDS: ROCEPHIN 1 GM / 100 ML NaCl 1 GM/100 ML IVPB IV SCH (22:13)
[2024-10-11 04:41] LABS: Absolute Neutrophil Ct (ANC) 11.66 x10^3/uL (1.56-6.13); BASOPHIL % 0.1 % (0.1-1.2); Basophil (Absolute #) 0.02 x10^3/uL (0.01-0.08); Eosinophil (Absolute #) 0 x10^3/uL (0.04-0.36); Hematocrit 40.4 % (34.1-44.9); Hemoglobin 13.1 g/dL (11.2-15.7); IMMATURE GRAN # 0.07 x10^3u/L (0.001-0.031); IMMATURE GRAN % 0.5 % (0.001-0.429); Lymphocyte (Absolute #) 1.55 x10^3/uL (1.18-3.74); Mean Cell Volume 93.1 fL (79.4-94.8); Mean Corpuscular Hemoglobin 30.2 pg (25.6-32.2); Mean Corpuscular Hgb Concent. 32.4 g/dL (32.2-35.5); Mean Platelet Volume 9.1 fL (9.4-12.3); Monocyte (Absolute #) 0.84 x10^3/uL (0.24-0.86); Monocytes % 5.9 % (4.7-12.5); Neutrophil % 82.5 % (34.0-71.1); Platelet Count 300 x10^3/uL (182-369); Red Blood Count 4.34 x10^6/uL (3.93-5.22); White Blood Count 14.1 x10^3/uL (3.98-10.04)
[2024-10-11 04:55] LABS: ALBUMIN 4.2 g/dL (3.5-5.0); ANION GAP 14.5 MEQ/L (5-15); BILIRUBIN,TOTAL 0.5 mg/dL (0.2-1.3); Calcium 9.3 mg/dL (8.4-10.2); Creatinine 1 0.71 mg/dL (0.52-1.04); EST GLOMERULAR FILTRATION RATE 89.2 ML/MIN; Potassium 3.9 mmol/L (3.5-5.1); Total Protein 7.3 g/dL (6.3-8.2)
--- NOTE | 2024-10-11 05:06 | PCM.DS ---
Discharge Summary Date of Admission: 10/09/24 15:54 Date of Discharge: 10/11/24 Admitting Physician: PRAKASH KWAN MD Primary Care Provider: JACQUELINE DIAZ Allergies Allergies Sulfa (Sulfonamide Antibiotics) [Sulfa(Sulfonamide Antibiotics)] Allergy (Intermediate, Verified 10/09/24 16:33) [facility] Summary - Hospital Course Hospital Course: Adam is a 73-year-old female with a history of hypertension, hyperlipidemia, hypothyroidism, and atrial fibrillation on Eliquis presented to ED 10/09/24 with progressively worsening shortness of breath and a productive cough over the past two days, following a month-long intermittent illness with FLUA and recent exposure to RSV. She reported increasing dyspnea with minimal exertion, moderate amounts of clear to green/yellow sputum, subjective fevers, chills, fatigue, and weakness. Despite using home nebulizer treatments and a prior course of antibiotics, her symptoms have persisted. Upon arrival to ED she was mildly tachypneic but improved following nebulizer therapy. Laboratory findings were unremarkable, with normal WBC count, stable metabolic panel, and negative troponins. EKG demonstrated atrial fibrillation with controlled rate, and chest X-ray showed no acute cardiopulmonary pathology. Given her RSV diagnosis and persistent symptoms, she was admitted for observation with frequent nebulizer treatments, steroids, and abx. Dyspnea and cough improved. Patient advised to continue home nebulizer treatments as needed. She will be dismissed with steroids and abx. Patient states she already has a prescription for Cefdinir with 8 days left prescribed by her PCP. Advised patient to monitor blood glucose levels closely while on steroids. She has a follow up appt on Monday with Dr. Forman. Discharge Note New Diagnosis: RSV New Medications: Continue Cefdinir/protonix/medrol dose pack Follow Up: Pulm/pcp I spent 35 minutes [id number] with the patient on the day of discharge performing discharge exam, discussing hospital stay and discharge instructions with patient and caregivers, preparation of discharge records, prescriptions & referral forms and addressing any questions/concerns the patient had as documented above. - Vitals & Intake/Output Vital Signs: Vital Signs Temperature 97.1 F 10/11/24 04:00 Pulse Rate 64 10/11/24 04:00 Respiratory Rate 20 10/11/24 04:00 Blood Pressure 129/62 10/11/24 04:00 O2 Sat by Pulse Oximetry 98 10/11/24 04:00 Intake & Output: Intake & Output 10/08/24 10/09/24 10/10/24 10/11/24 11:59 11:59 11:59 11:59 Intake Total 1440 740 Balance 1440 740 Weight 90 kg - Lab Result Diagrams: 10/11/24 04:16 10/11/24 04:16 Lab Results-Last 24 Hrs: Lab Results-Last 24 Hours 10/10/24 10/10/24 10/10/24 Range/Units 04:35 04:35 08:09 WBC (3.98-10.04) x10^3/uL RBC (3.93-5.22) x10^6/uL Hgb (11.2-15.7) g/dL Hct (34.1-44.9) % MCV (79.4-94.8) fL MCH (25.6-32.2) pg MCHC (32.2-35.5) g/dL RDW (11.7-14.4) % Plt Count (182-369) x10^3/uL MPV (9.4-12.3) fL Gran % (34.0-71.1) % Immature Gran % (Auto) (0.001-0.429) % Nucleat RBC Rel Count (0.00-0.2) % Eos # (Auto) (0.04-0.36) x10^3/uL Immature Gran # (Auto) (0.001-0.031) x10^3u/L Absolute Lymphs (auto) (1.18-3.74) x10^3/uL Absolute Monos (auto) (0.24-0.86) x10^3/uL Absolute Nucleated RBC (0.00-0.012) x10^3u/L Lymphocytes % (19.3-51.7) % Monocytes % (4.7-12.5) % Eosinophils % (0.7-5.8) % Basophils % (0.1-1.2) % Absolute Granulocytes (1.56-6.13) x10^3/uL Segmented Neutrophils 86 H (34.0-71.1) % Lymphocytes (Manual) 10 L (19.3-51.7) % Monocytes (Manual) 1 L (4.7-12.5) % Basophils # (0.01-0.08) x10^3/uL Atypical Lymphocytes 3 % Platelet Estimate NORMAL (NORMAL) RBC Morphology NORMAL Sodium 141 (135-145) mmol/L Potassium 3.6 (3.5-5.1) mmol/L Chloride 105 (98-107) mmol/L Carbon Dioxide 21 L (22-30) mmol/L Anion Gap 19.0 H (5-15) MEQ/L BUN 12 (7-17) mg/dL Creatinine 0.56 (0.52-1.04) mg/dL Estimated GFR 95.7 ML/MIN Glucose 196 H (74-106) mg/dL POC Glucometer 148 H (74 to 106) mg/dL Calcium 9.3 (8.4-10.2) mg/dL Total Bilirubin 0.40 (0.2-1.3) mg/dL AST 33 (14-36) U/L ALT 38 H (0-35) U/L Alkaline Phosphatase 69 (38-126) U/L Serum Total Protein 7.4 (6.3-8.2) g/dL Albumin 4.3 (3.5-5.0) g/dL 10/10/24 10/10/24 10/10/24 Range/Units 11:22 16:32 20:55 WBC (3.98-10.04) x10^3/uL RBC (3.93-5.22) x10^6/uL Hgb (11.2-15.7) g/dL Hct (34.1-44.9) % MCV (79.4-94.8) fL MCH (25.6-32.2) pg MCHC (32.2-35.5) g/dL RDW (11.7-14.4) % Plt Count (182-369) x10^3/uL MPV (9.4-12.3) fL Gran % (34.0-71.1) % Immature Gran % (Auto) (0.001-0.429) % Nucleat RBC Rel Count (0.00-0.2) % Eos # (Auto) (0.04-0.36) x10^3/uL Immature Gran # (Auto) (0.001-0.031) x10^3u/L Absolute Lymphs (auto) (1.18-3.74) x10^3/uL Absolute Monos (auto) (0.24-0.86) x10^3/uL Absolute Nucleated RBC (0.00-0.012) x10^3u/L Lymphocytes % (19.3-51.7) % Monocytes % (4.7-12.5) % Eosinophils % (0.7-5.8) % Basophils % (0.1-1.2) % Absolute Granulocytes (1.56-6.13) x10^3/uL Segmented Neutrophils (34.0-71.1) % Lymphocytes (Manual) (19.3-51.7) % Monocytes (Manual) (4.7-12.5) % Basophils # (0.01-0.08) x10^3/uL Atypical Lymphocytes % Platelet Estimate (NORMAL) RBC Morphology Sodium (135-145) mmol/L Potassium (3.5-5.1) mmol/L Chloride (98-107) mmol/L Carbon Dioxide (22-30) mmol/L Anion Gap (5-15) MEQ/L BUN (7-17) mg/dL Creatinine (0.52-1.04) mg/dL Estimated GFR ML/MIN Glucose (74-106) mg/dL POC Glucometer 137 H 150 H 186 H (74 to 106) mg/dL Calcium (8.4-10.2) mg/dL Total Bilirubin (0.2-1.3) mg/dL AST (14-36) U/L ALT (0-35) U/L Alkaline Phosphatase (38-126) U/L Serum Total Protein (6.3-8.2) g/dL Albumin (3.5-5.0) g/dL 10/11/24 10/11/24 Range/Units 04:16 04:16 WBC 14.1 H (3.98-10.04) x10^3/uL RBC 4.34 (3.93-5.22) x10^6/uL Hgb 13.1 (11.2-15.7) g/dL Hct 40.4 (34.1-44.9) % MCV 93.1 (79.4-94.8) fL MCH 30.2 (25.6-32.2) pg MCHC 32.4 (32.2-35.5) g/dL RDW 14.0 (11.7-14.4) % Plt Count 300 (182-369) x10^3/uL MPV 9.1 L (9.4-12.3) fL Gran % 82.5 H (34.0-71.1) % Immature Gran % (Auto) 0.5 H (0.001-0.429) % Nucleat RBC Rel Count 0.0 (0.00-0.2) % Eos # (Auto) 0 L (0.04-0.36) x10^3/uL Immature Gran # (Auto) 0.07 H (0.001-0.031) x10^3u/L Absolute Lymphs (auto) 1.55 (1.18-3.74) x10^3/uL Absolute Monos (auto) 0.84 (0.24-0.86) x10^3/uL Absolute Nucleated RBC 0.00 (0.00-0.012) x10^3u/L Lymphocytes % 11.0 L (19.3-51.7) % Monocytes % 5.9 (4.7-12.5) % Eosinophils % 0.0 L (0.7-5.8) % Basophils % 0.1 (0.1-1.2) % Absolute Granulocytes 11.66 H (1.56-6.13) x10^3/uL Segmented Neutrophils (34.0-71.1) % Lymphocytes (Manual) (19.3-51.7) % Monocytes (Manual) (4.7-12.5) % Basophils # 0.02 (0.01-0.08) x10^3/uL Atypical Lymphocytes % Platelet Estimate (NORMAL) RBC Morphology Sodium 141 (135-145) mmol/L Potassium 3.9 (3.5-5.1) mmol/L Chloride 104 (98-107) mmol/L Carbon Dioxide 26 (22-30) mmol/L Anion Gap 14.5 (5-15) MEQ/L BUN 21 H (7-17) mg/dL Creatinine 0.71 (0.52-1.04) mg/dL Estimated GFR 89.2 ML/MIN Glucose 110 H (74-106) mg/dL POC Glucometer (74 to 106) mg/dL Calcium 9.3 (8.4-10.2) mg/dL Total Bilirubin 0.50 (0.2-1.3) mg/dL AST 30 (14-36) U/L ALT 29 (0-35) U/L Alkaline Phosphatase 64 (38-126) U/L Serum Total Protein 7.3 (6.3-8.2) g/dL Albumin 4.2 (3.5-5.0) g/dL Micro Results-Entire Visit: Accuchecks Date 10/10/24 Date 10/10/24 Time 20:55 Time 08:27 - Radiology Exams Ordered Rad Exams-Entire Visit: Radiology Procedures Category Date Time Status CHEST 1 VIEW (PORTABLE) Stat Exams 10/09/24 12:39 Completed - Procedures and Test Procedures and Tests throughout Hospitalization: Therapy Orders & Screens 10/09/24 15:55 Respiratory Therapy Consult ONCE Comment: Reason For Exam: 10/09/24 16:20 RT Screen per Nursing Assess ONCE Comment: Protocol Order Physician Instructions: Greater than 3 points order RT Admission Screen Reason For Exam: Triggered on Admission Diagnosis: RSV Diagnosis: RSV Pneumonia: No Home O2: No Asthma: Yes CHF: No Home CPAP/BIPAP: Yes Home Nebs/MDI: Yes Total Points: 14 10/09/24 17:20 Flutter Therapy UD Comment: Diagnosis: RSV Discharge Exam General Appearance: no apparent distress Neurologic Exam: alert, oriented x 3, cooperative Eye Exam: PERRL Ears, Nose, Throat Exam: normal ENT inspection Neck Exam: normal inspection Respiratory Exam: crackles/rales Cardiovascular Exam: regular rate/rhythm, normal heart sounds Gastrointestinal/Abdomen Exam: soft, normal bowel sounds Pelvic Exam: deferred Rectal Exam: deferred Back Exam: normal inspection Extremity Exam: normal inspection Skin Exam: pale Final Diagnosis/Problem List - Final Discharge Diagnosis/Problem (1) Acute bronchitis due to respiratory syncytial virus (RSV) Current Visit: Yes Status: Acute Code(s): J20.5 - ACUTE BRONCHITIS DUE TO RESPIRATORY SYNCYTIAL VIRUS (2) Type 2 diabetes mellitus Current Visit: Yes Status: Chronic (3) GERD (gastroesophageal reflux disease) Current Visit: Yes Status: Chronic Code(s): K21.9 - GASTRO-ESOPHAGEAL REFLUX DISEASE WITHOUT ESOPHAGITIS (4) HLD (hyperlipidemia) Current Visit: Yes Status: Chronic Code(s): E78.5 - HYPERLIPIDEMIA, UNSPECIFIED (5) HTN (hypertension) Current Visit: Yes Status: Chronic Code(s): I10 - ESSENTIAL (PRIMARY) HYPERTENSION (6) Hypothyroid Current Visit: Yes Status: Chronic Code(s): E03.9 - HYPOTHYROIDISM, UNSPECIFIED (7) Afib Current Visit: Yes Status: Chronic Code(s): I48.91 - UNSPECIFIED ATRIAL FIBRILLATION - Discharge Discharge Date: 10/11/24 Disposition: Home, Self-Care Condition: Stable Prescriptions: New Methylprednisolone Packet [Medrol Dosepack] 4 mg PO UD #1 packet Cefdinir [Omnicef 300 mg] 300 mg PO BID 10 Days #20 cap PANTOPRAZOLE 40 mg Tablet [Protonix 40MG Tablet] 40 mg PO DAILY 30 Days #30 tab Continue Gabapentin 300 mg PO HS Lisinopril 5 mg [Zestril 5 MG] 5 mg PO DAILY Metoprolol Succinate 50 mg [Toprol Xl 50 MG] 50 mg PO DAILY Dronedarone Hydrochloride 400* [Multaq 400 MG] 400 mg PO BID Levothyroxine Sodium [Unithroid] 25 mcg PO DAILY Alirocumab [Praluent Pen] 75 mg SQ Q14D Apixaban [Eliquis 2.5 mg Tablet] 5 mg PO BID Potassium Chloride Tab* [Klor Con] 20 meq PO DAILY Additional Instructions: Continue Cefdinir as prescribed by PCP Follow up with: NATHALIE FORMAN [ACTIVE STAFF] - 10/23/24 2:30 pm (AT [facility]) JACQUELINE DIAZ MD [Primary Care Provider] -
[2024-10-11 07:08] VITALS: O2SAT 99
[2024-10-11 07:42] VITALS: BP 142/83; PULSE 78; RESP 22; TEMP 97.4
[2024-10-11] MEDS: solu-MEDROL 40 MG, Sterile H2O 10 ml 1 ML IV SCH (09:16)
== END 2024-10-11 11:32 | disposition home or self-care (01) ==
LOC: ED 12:32 → MED SURG 15:54
PROVIDERS: ADMIT Internal Medicine; ATTEND Internal Medicine
DX: J20.5 Acute bronchitis due to respiratory syncytial virus (principal); E11.9 Type 2 diabetes mellitus without complications; K21.9 Gastro-esophageal reflux disease without esophagitis; E78.5 Hyperlipidemia, unspecified; I10 Essential (primary) hypertension; E03.9 Hypothyroidism, unspecified; I48.91 Unspecified atrial fibrillation; Z79.01 Long term (current) use of anticoagulants; Z79.899 Other long term (current) drug therapy
CPT/HCPCS: 0241U; 36415; 71045; 80053; 82947; 83036; 83605; 83735; 83880; 84484; 85025; 87040; 93005; 93041; 94640; 94667; 94668; 94760; 96375; 99285; 93268; J0696; J2919; J7609; Q3014; A9270-GY; G0378